=== PATIENT | male | born 1990 | race Caucasian/White ===

== ENCOUNTER 2017-03-17 15:43 | Inpatient (IN) | payer OTHER ==
[~2017-03-17] VITALS: Ht 160 cm; Wt 90.0 kg
[2017-03-17 15:47] VITALS: BP 140/75; PULSE 137; RESP 20; TEMP 99.2; O2SAT 98
[2017-03-17] MEDS ORDERED: METO25TA3 PO (16:13)
[2017-03-17] MEDS ORDERED: BENZ100 PO (16:13)
[2017-03-17] MEDS ORDERED: LORazepam 2 MG/ML VIAL IV PUSH ONE ×3 (16:45→17:45)
[2017-03-17] MEDS ORDERED: SODIUM CHLOR 0.9% 1000 ML INJ 1,000 ML IV ONE ×2 (16:45→19:00)
[2017-03-17 17:09] VITALS: BP 133/65; PULSE 112; RESP 18; O2SAT 98
[2017-03-17 17:29] LABS: AUTOMATED NEUTROPHIL # 9.5 TH/MM3 (1.8-7.7); BASOPHIL # 0.1 TH/MM3 (0-0.2); BASOPHIL % 0.4 % (0.0-2.0); EOSINOPHIL % 0.2 % (0.0-4.0); HEMATOCRIT 46.1 % (39.0-51.0); HEMO FLAGS DIFF FINAL; LYMPH % 10.6 % (9.0-44.0); LYMPHOCYTE # 1.4 TH/MM3 (1.0-4.8); MEAN CELL VOLUME 95.9 FL (80.0-100.0); MEAN CORPUSCULAR HEMOGLOBIN 32.5 PG (27.0-34.0); MEAN CORPUSCULAR HGB CONC 33.8 % (32.0-36.0); MONO % 14.3 % (0.0-8.0); NEUT % 74.5 % (16.0-70.0); PLATELET COUNT 212 TH/MM3 (150-450); RED BLOOD COUNT 4.81 MIL/MM3 (4.50-5.90); WHITE BLOOD COUNT 12.8 TH/MM3 (4.0-11.0)
[2017-03-17] MEDS ORDERED: HALOPERIDOL LACTATE 5 MG/ML AMP IM ONE (17:45)
--- NOTE | 2017-03-17 18:07 | PD ---
HPI Chief Complaint: Psychiatric Symptoms Time Seen by Provider: 16:24 Travel History International Travel<30 days: No Contact w/Intl Traveler<30days: No Traveled to known affect area: No History of Present Illness HPI Patient is a 26-year-old male who comes in with hallucinations and tremors. He has been drinking heavily for the past 2-3 months, but decided 5 days ago to quit. He says that he knows he is hallucinating. He also is very shaky. He complains of muscle cramps. He denies any chest pain or shortness of breath. Per his friend, he has been saying things like people are nice house trying to harm him. He does report a history of schizophrenia, and says that for 3 days he took risperidone, but was not given any more, and did not have insurance. PFSH Past Medical History Asthma: Yes Anxiety: Yes Depression: Yes Hypertension: Yes Insomnia: Yes Schizophrenia: Yes Tetanus Vaccination: Unknown Social History Alcohol Use: Yes Tobacco Use: Yes Substance Use: No Allergies-Medications (Allergen,Severity, Reaction): Coded Allergies: No Known Allergies (Unverified , 03/17/17) Reported Meds & Prescriptions Reported Meds & Active Scripts Active Reported Lisinopril-Hctz 20-25 Mg Tab 1 Tab PO DAILY Risperdal (Risperidone) 2 Mg Tab 2 Mg PO Q12HR Tessalon Perles (Benzonatate) 100 Mg Cap 200 Mg PO TID PRN Metoprolol Tartrate 25 Mg Tab 25 Mg PO TID Review of Systems Except as stated in HPI: all other systems reviewed are Neg General / Constitutional: No: Fever, Chills HENT: Positive: Lightheadedness, No: Headaches Cardiovascular: Positive: Tachycardia, Diaphoresis, No: Chest Pain or Discomfort, Syncope Respiratory: No: Shortness of Breath Gastrointestinal: No: Nausea, Vomiting Skin: No Rash, No Change in Pigmentation Neurologic: Positive: Tremor Physical Exam Narrative GENERAL: Awake and alert, in no acute distress. SKIN: Focused skin assessment warm/dry. HEAD: Atraumatic. Normocephalic. EYES: Pupils equal and round. No scleral icterus. Extraocular movements intact. ENT: Mucous membranes pink and moist. Tongue fasciculations. NECK: Trachea midline. No JVD. CARDIOVASCULAR: Regular rate and rhythm. No murmur appreciated. RESPIRATORY: No accessory muscle use. Clear to auscultation. Breath sounds equal bilaterally. GASTROINTESTINAL: Abdomen soft, non-tender, nondistended. MUSCULOSKELETAL: No obvious deformities. No clubbing. No cyanosis. No edema. NEUROLOGICAL: Awake and alert. No obvious cranial nerve deficits. Motor grossly within normal limits. Normal speech. Fine tremor to both hands. Data Data Last Documented VS Vital Signs Date Time Temp Pulse Resp B/P Pulse Ox O2 Delivery O2 Flow Rate FiO2 03/17/17 18:31 116 20 117/56 98 Room Air 03/17/17 15:47 99.2 Orders Iv Access Insert/Monitor (03/17/17 16:42) Complete Blood Count With Diff (03/17/17 16:42) Comprehensive Metabolic Panel (03/17/17 16:42) Alcohol (Ethanol) (03/17/17 16:42) Ecg Monitoring (03/17/17 16:42) Sodium Chlor 0.9% 1000 Ml Inj (Ns 1000 M (03/17/17 16:45) Lorazepam Inj (Ativan Inj) (03/17/17 16:45) Electrocardiogram (03/17/17 ) Lorazepam Inj (Ativan Inj) (03/17/17 17:30) Creatine Kinase (Cpk) (03/17/17 16:42) Haloperidol Inj (Haldol Inj) (03/17/17 17:45) Lorazepam Inj (Ativan Inj) (03/17/17 17:45) Restraints Violent (03/17/17 18:33) CKMB (03/17/17 16:50) CKMB% (03/17/17 16:50) Admit Order (Ed Use Only) (03/17/17 ) Consult Psychiatry (03/17/17 ) Labs Laboratory Tests Test 03/17/17 16:50 White Blood Count 12.8 TH/MM3 Red Blood Count 4.81 MIL/MM3 Hemoglobin 15.6 GM/DL Hematocrit 46.1 % Mean Corpuscular Volume 95.9 FL Mean Corpuscular Hemoglobin 32.5 PG Mean Corpuscular Hemoglobin 33.8 % Concent Red Cell Distribution Width 14.0 % Platelet Count 212 TH/MM3 Mean Platelet Volume 8.8 FL Neutrophils (%) (Auto) 74.5 % Lymphocytes (%) (Auto) 10.6 % Monocytes (%) (Auto) 14.3 % Eosinophils (%) (Auto) 0.2 % Basophils (%) (Auto) 0.4 % Neutrophils # (Auto) 9.5 TH/MM3 Lymphocytes # (Auto) 1.4 TH/MM3 Monocytes # (Auto) 1.8 TH/MM3 Eosinophils # (Auto) 0.0 TH/MM3 Basophils # (Auto) 0.1 TH/MM3 CBC Comment DIFF FINAL Differential Comment Sodium Level 134 MEQ/L Potassium Level 3.9 MEQ/L Chloride Level 96 MEQ/L Carbon Dioxide Level 22.3 MEQ/L Anion Gap 16 MEQ/L Blood Urea Nitrogen 16 MG/DL Creatinine 2.19 MG/DL Estimat Glomerular Filtration 36 ML/MIN Rate Random Glucose 72 MG/DL Calcium Level 10.8 MG/DL Total Bilirubin 1.1 MG/DL Aspartate Amino Transf 262 U/L (AST/SGOT) Alanine Aminotransferase 109 U/L (ALT/SGPT) Alkaline Phosphatase 94 U/L Total Creatine Kinase 8196 U/L Total Protein 8.6 GM/DL Albumin 4.5 GM/DL Ethyl Alcohol Level LESS THAN 3 MG/DL [facility] Medical Decision Making Medical Screen Exam Complete: Yes Emergency Medical Condition: Yes Interpretation(s) ECG shows sinus tachycardia, no ST elevation or depression Differential Diagnosis Alcohol withdrawal versus delirium tremens versus psychosis versus electrolytes abnormality versus dehydration Narrative Course Patient is a 26-year-old male who comes in with hallucinations and tremors. Exam shows a tremor of both hands as well as tongue fasciculations. Patient is tachycardic. IV established, labs sent. Patient given IV fluids as well as Ativan. Patient became very agitated, he required more Ativan as well as Haldol. It is unclear if the hallucinations are due to to alcohol withdrawal or his psychiatric diagnosis or a combination of both. He will be admitted for alcohol withdrawal, but will require a psychiatry consult. Show an elevated total CK. Given 2 L of fluids. Creatinine is also elevated. Patient has rhabdomyolysis Diagnosis Primary Impression: Alcohol withdrawal Qualified Code: F10.231 - Alcohol withdrawal, with delirium Additional Impressions: Psychosis Qualified Code: F29 - Psychosis, unspecified psychosis type Rhabdomyolysis Qualified Code: M62.82 - Non-traumatic rhabdomyolysis Admitting Information Admitting Physician Requests: Admit Condition: Stable Maxine Fontanez MD Mar 17, 2017 18:06
[2017-03-17 18:14] LABS: ALT (GPT) 109 U/L (12-78); ANION GAP 16 MEQ/L (5-15); AST (GOT) 262 U/L (15-37); BICARBONATE 22.3 MEQ/L (21.0-32.0); BLOOD UREA NITROGEN 16 MG/DL (7-18); CHLORIDE 96 MEQ/L (98-107); GLOMERULAR FILTRATION RATE 36 ML/MIN (>89); POTASSIUM 3.9 MEQ/L (3.5-5.1); SODIUM (NA) 134 MEQ/L (136-145)
[2017-03-17 18:31] VITALS: BP 117/56; PULSE 116; RESP 20; O2SAT 98
[2017-03-17 18:39] LABS: ALKALINE PHOSPHATASE 94 U/L (45-117); CREATINE KINASE 8196 U/L (39-308); TOTAL BILIRUBIN ADULT 1.1 MG/DL (0.2-1.0)
[2017-03-17] MEDS ORDERED: RISP2TAB37 PO (18:42)
[2017-03-17] MEDS ORDERED: LISI20TA3 PO (18:42)
[2017-03-17] MEDS ORDERED: SODIUM CHLOR 0.9% 1000 ML INJ 1,000 ML IV SCH (18:54)
--- NOTE | 2017-03-17 18:58 | HHI.HP ---
[facility] Primary Care Physician Admission Diagnosis Alcohol withdrawal Diagnoses: (1) Alcohol withdrawal Diagnosis: Principal (2) Psychosis Diagnosis: Principal (3) Renal insufficiency Diagnosis: Principal (4) Rhabdomyolysis Diagnosis: Principal (5) Elevated LFTs Diagnosis: Principal (6) Tobacco abuse Diagnosis: Principal Travel History International Travel<30 Days: No Contact w/Intl Traveler <30 Da: No Traveled to Known Affected Are: No History of Present Illness This is a 26-year-old male with a PMH of Anxiety, Depression, Schizophrenia, Alcohol Abuse and Tobacco Abuse was brought to the ER by EMS after neighbors noted patient to have visual hallucinations. Per pt, normally drinks heavily, however last drink approx 5 days ago. Now w/ visual hallucinations and tremors. Off Risperidone due to financial reasons. On arrival, BP 140/75, HR 137, O2 sat 98% on RA, Temp 99.2. W WBC 12.8. Creatinine 2.19, no previous labs for comparison. Calcium 10.8. LFTs elevated. CPK 8196. Alcohol less than 3. Review of Systems Except as stated in HPI: all other systems reviewed are Neg ROS: 14 point review of systems otherwise negative. Past Family Social History Past Medical History PMH: Anxiety, Depression, Schizophrenia, Alcohol Abuse and Tobacco Abuse Past Surgical History PAST SURGICAL HISTORY: Foot Surgery Allergies: Coded Allergies: No Known Allergies (Unverified , 03/17/17) Family History PAST FAMILY HISTORY: Reviewed. No h/o DM or CAD Social History PAST SOCIAL HISTORY: Positive for alcohol abuse. + Tobacco. Negative for drugs. Physical Exam Vital Signs Vital Signs Date Time Temp Pulse Resp B/P Pulse Ox O2 Delivery O2 Flow Rate FiO2 03/17/17 18:31 116 20 117/56 98 Room Air 03/17/17 17:09 112 18 133/65 98 Room Air 03/17/17 16:01 21 03/17/17 15:47 99.2 137 20 140/75 98 Physical Exam PE: GENERAL: Young male in no acute distress, mildly tremulous HEENT: PERRLA, EOMI. No scleral icterus or conjunctival pallor. No lid lag or facial droop. CARDIOVASCULAR: Regular rate and rhythm. No obvious murmurs to auscultation. No chest tenderness to palpation. RESPIRATORY: No obvious rhonchi or wheezing. Clear to auscultation. Breath sounds equal bilaterally. GASTROINTESTINAL: Abdomen soft, non-tender, nondistended. BS normal. MUSCULOSKELETAL: Extremities without clubbing, cyanosis, or edema. No obvious deformities. NEUROLOGICAL: Awake, alert and oriented x4. No focal neurologic deficits. Moving both upper and lower extremities spontaneously. Laboratory Laboratory Tests Test 03/17/17 16:50 White Blood Count 12.8 Red Blood Count 4.81 Hemoglobin 15.6 Hematocrit 46.1 Mean Corpuscular Volume 95.9 Mean Corpuscular Hemoglobin 32.5 Mean Corpuscular Hemoglobin 33.8 Concent Red Cell Distribution Width 14.0 Platelet Count 212 Mean Platelet Volume 8.8 Neutrophils (%) (Auto) 74.5 Lymphocytes (%) (Auto) 10.6 Monocytes (%) (Auto) 14.3 Eosinophils (%) (Auto) 0.2 Basophils (%) (Auto) 0.4 Neutrophils # (Auto) 9.5 Lymphocytes # (Auto) 1.4 Monocytes # (Auto) 1.8 Eosinophils # (Auto) 0.0 Basophils # (Auto) 0.1 CBC Comment DIFF FINAL Differential Comment Sodium Level 134 Potassium Level 3.9 Chloride Level 96 Carbon Dioxide Level 22.3 Anion Gap 16 Blood Urea Nitrogen 16 Creatinine 2.19 Estimat Glomerular Filtration 36 Rate Random Glucose 72 Calcium Level 10.8 Total Bilirubin 1.1 Aspartate Amino Transf 262 (AST/SGOT) Alanine Aminotransferase 109 (ALT/SGPT) Alkaline Phosphatase 94 Total Creatine Kinase 8196 Total Protein 8.6 Albumin 4.5 Ethyl Alcohol Level LESS THAN 3 Result Diagram: 03/17/17 1650 03/17/17 1650 Assessment and Plan Problem List: (1) Alcohol withdrawal ICD Code: F10.239 Status: Acute (2) Psychosis ICD Code: F29 Status: Acute (3) Rhabdomyolysis ICD Code: M62.82 Status: Acute (4) Renal insufficiency ICD Code: N28.9 Status: Acute (5) Elevated LFTs ICD Code: R79.89 Status: Acute (6) Tobacco abuse ICD Code: Z72.0 Status: Acute Assessment and Plan A/P: 1. Alcohol Withdrawal: h/o Alcohol Abuse w/ Acute Alcohol Withdrawal, last drink approx 5 days ago. CIWA, Seizure Precautions, MVT/Thiamine/Folate. 2. Psychosis: H/o Schizophrenia, off Risperidone, +visual hallucinations, likely secondary to underlying Schizophrenia and compounded by acute alcohol withdrawal. Treatment as above, resume Risperidone. Consult Psych for further evaluation. 3. Rhabdomyolysis: CPK 8196, denies drug use, likely secondary to significant dehydration. Check U/a, Urine Drug Screen, IVF for hydration, repeat CPK for trend. 4. Renal Insufficiency: Creatinine 2.19, no previous labs for comparison, likely acute. IVF for hydration, repeat labs in am. 5. Elevated LFTs: AST 262, ALT 109, ALP normal, Total Bili 1.1, likely due to alcohol abuse, repeat labs in am. 6. Tobacco Abuse: Pt counselled. Ativan/NicoDerm prn if needed. 7. DVT Prophylaxis: SCD/Teds. 8. Social work for d/c planning as needed. 9. Case discussed w/ ER physician at length. Physician Certification 2 Midnight Certification Type: Admission for Inpatient Services Order for Inpatient Services The services are ordered in accordance with Medicare regulations or non- Medicare payer requirements, as applicable. In the case of services not specified as inpatient-only, they are appropriately provided as inpatient services in accordance with the 2-midnight benchmark. Estimated LOS (days): 2 days is the estimated time the patient will need to remain in the hospital, assuming treatment plan goals are met and no additional complications. Post-Hospital Plan: Not yet determined Problem Qualifiers (1) Alcohol withdrawal: Qualified Code: F10.231 - Alcohol withdrawal, with delirium (2) Psychosis: Qualified Code: F29 - Psychosis, unspecified psychosis type (3) Rhabdomyolysis: Qualified Code: M62.82 - Non-traumatic rhabdomyolysis Pearl Méndez MD Mar 17, 2017 18:58
[2017-03-17] MEDS ORDERED: LACTULOSE SYRUP 20 GM/30 ML CUP PO PRN (19:00)
[2017-03-17] MEDS ORDERED: ONDANSETRON HCL 4 MG/2 ML VIAL IVP PRN (19:00)
[2017-03-17] MEDS ORDERED: SODIUM CHLORIDE 0.9% FLUSH 10 ML FLUSH IV FLUSH PRN (19:00)
[2017-03-17] MEDS ORDERED: ACETAMINOPHEN 325 MG TAB PO PRN (19:00)
[2017-03-17] MEDS ORDERED: LORazepam 2 MG/ML VIAL IV PUSH PRN ×3 (19:00)
[2017-03-17] MEDS ORDERED: LORazepam 2 MG TAB PO PRN (19:00)
[2017-03-17] MEDS ORDERED: LORazepam 1 MG TAB PO PRN (19:00)
[2017-03-17] MEDS ORDERED: MAGNESIUM HYDROXIDE SUSP 30 ML CUP PO PRN (19:00)
[2017-03-17] MEDS ORDERED: BISACODYL 10 MG SUPP RECTAL PRN (19:00)
[2017-03-17] MEDS ORDERED: SENNOSIDES 8.6 MG TAB PO PRN (19:00)
[2017-03-17] MEDS ORDERED: FLUMAZENIL 0.5 MG/5 ML VIAL IV PUSH PRN (19:00)
[2017-03-17] MEDS ORDERED: HALOPERIDOL LACTATE 5 MG/ML AMP IM PRN (19:00)
[2017-03-17 19:07] LABS: CKMB 54.7 NG/ML (0.5-3.6)
[2017-03-17 20:01] VITALS: BP 111/79; PULSE 110; O2SAT 100
[2017-03-17] MEDS: LORazepam 2 MG/ML VIAL IV PUSH PRN ×2 (21:02→23:10)
--- NOTE | 2017-03-17 21:33 | EKG ---
Date Performed: 03/17/2017 Time Performed: 17:05:18 PTAGE: 26 years EKG: SINUS TACHYCARDIA WITH SHORT CA INTERVAL NONSPECIFIC ST & T-WAVE ABNORMALITY ABNORMAL ECG NO PREVIOUS TRACING DOCTOR: Aleksandar Ricks Interpretating Date/Time 03/17/2017 21:31:30
[2017-03-17] MEDS: risperiDONE 1 MG TAB PO SCH (23:11)
[2017-03-17] MEDS: THIAMINE HCL 100 MG TAB PO SCH (23:11)
[2017-03-17] MEDS: DOCUSATE SODIUM 50 MG/SENNA 8.6 MG TAB PO SCH (23:11)
[2017-03-17] MEDS: SODIUM CHLORIDE 0.9% FLUSH 10 ML FLUSH IV FLUSH SCH (23:12)
[2017-03-18] VITALS: BP 128/73; PULSE 100; RESP 16; TEMP 97.3; O2SAT 91
[2017-03-18 02:16] LABS: CKMB 37.5 NG/ML (0.5-3.6)
[2017-03-18 04:31] VITALS: BP 137/80; PULSE 102; RESP 16; TEMP 98; O2SAT 98
[2017-03-18 07:17] LABS: AUTOMATED NEUTROPHIL # 3.5 TH/MM3 (1.8-7.7); BASOPHIL % 0.3 % (0.0-2.0); EOSINOPHIL # 0.1 TH/MM3 (0-0.4); HEMATOCRIT 39.3 % (39.0-51.0); HEMO FLAGS DIFF FINAL; LYMPH % 19.8 % (9.0-44.0); LYMPHOCYTE # 1.1 TH/MM3 (1.0-4.8); MEAN CORPUSCULAR HEMOGLOBIN 32.7 PG (27.0-34.0); MEAN CORPUSCULAR HGB CONC 33.7 % (32.0-36.0); MONO % 15.4 % (0.0-8.0); NEUT % 63.5 % (16.0-70.0); PLATELET COUNT 121 TH/MM3 (150-450); RED BLOOD COUNT 4.06 MIL/MM3 (4.50-5.90); RED CELL DISTRIBUTION WIDTH 13.9 % (11.6-17.2); WHITE BLOOD COUNT 5.5 TH/MM3 (4.0-11.0)
[2017-03-18 08:00] VITALS: BP 142/90; PULSE 101; RESP 18; TEMP 97.7; O2SAT 96
[2017-03-18 08:03] LABS: ALKALINE PHOSPHATASE 75 U/L (45-117); ALT (GPT) 83 U/L (12-78); ANION GAP 12 MEQ/L (5-15); AST (GOT) 184 U/L (15-37); BICARBONATE 21.6 MEQ/L (21.0-32.0); BLOOD UREA NITROGEN 14 MG/DL (7-18); CHLORIDE 107 MEQ/L (98-107); CREATINE KINASE 5723 U/L (39-308); GLOMERULAR FILTRATION RATE 100 ML/MIN (>89); POTASSIUM 3.8 MEQ/L (3.5-5.1); SODIUM (NA) 141 MEQ/L (136-145); TOTAL BILIRUBIN ADULT 1.1 MG/DL (0.2-1.0)
[2017-03-18 08:25] LABS: CKMB 30.9 NG/ML (0.5-3.6)
[2017-03-18] MEDS ORDERED: FOLIC ACID 1 MG TAB PO SCH (09:00)
[2017-03-18] MEDS ORDERED: MULTIVITAMINS/MINERALS THERAPEUTIC TAB PO SCH (09:00)
[2017-03-18] MEDS: DOCUSATE SODIUM 50 MG/SENNA 8.6 MG TAB PO SCH (09:20)
[2017-03-18] MEDS: risperiDONE 1 MG TAB PO SCH (09:21)
[2017-03-18] MEDS: THIAMINE HCL 100 MG TAB PO SCH (09:26)
[2017-03-18] MEDS: SODIUM CHLORIDE 0.9% FLUSH 10 ML FLUSH IV FLUSH SCH (09:27)
--- NOTE | 2017-03-18 09:42 | HHI.PR ---
Subjective Remarks Patient seen and examined this morning. Vitals overall stable with intermittent tachycardia. Per nurse no overnight events but has been tremulous. He is alert and orientated. Denies CP or SOB. States he is in the hospital for his schizophrenia, Objective Vital Signs Date Time Temp Pulse Resp B/P Pulse Ox O2 Delivery O2 Flow Rate FiO2 03/18/17 08:00 97.7 101 18 142/90 96 03/18/17 04:31 98.0 102 16 137/80 98 03/18/17 00:00 97.3 100 16 128/73 91 03/17/17 20:01 110 111/79 100 Room Air 03/17/17 18:31 116 20 117/56 98 Room Air 03/17/17 17:09 112 18 133/65 98 Room Air 03/17/17 16:01 21 03/17/17 15:47 99.2 137 20 140/75 98 I/O 03/17/17 03/17/17 03/17/17 03/18/17 03/18/17 03/18/17 06:59 14:59 22:59 06:59 14:59 22:59 Intake Total 947 ml 720 ml Output Total 350 ml 0 ml Balance 597 ml 720 ml Intake Oral 250 ml 720 ml IV Total 697 ml Output Urine Total 350 ml 0 ml Result Diagram: 03/18/17 0510 03/18/17 0540 Objective Remarks GENERAL: resting, well appearing SKIN: Warm and dry. HEAD: Normocephalic. EYES: No scleral icterus. No injection or drainage. NECK: Supple, trachea midline. No JVD or lymphadenopathy. CARDIOVASCULAR: tachycardic rate and rhythm without murmurs, gallops, or rubs. RESPIRATORY: Breath sounds equal bilaterally. No accessory muscle use. GASTROINTESTINAL: Abdomen soft, non-tender, nondistended. MUSCULOSKELETAL: No cyanosis, or edema. BACK: Nontender without obvious deformity. A/P Problem List: (1) Renal insufficiency ICD Code: N28.9 (2) Rhabdomyolysis ICD Code: M62.82 (3) Tobacco abuse ICD Code: Z72.0 (4) Alcohol withdrawal ICD Code: F10.239 Assessment and Plan 26-year-old male with a history of anxiety, depression, schizophrenia, alcohol abuse, and tobacco abuse admitted to the hospital for visual hallucinations. Alcohol Withdrawal: h/o Alcohol Abuse w/ Acute Alcohol Withdrawal, last drink approx 6 days ago. CIWA, Seizure Precautions, MVT/Thiamine/Folate. Psychosis: H/o Schizophrenia, off Risperidone, +visual hallucinations, likely secondary to underlying Schizophrenia and compounded by acute alcohol withdrawal. Resume Risperidone. Consult Psych for further evaluation. Rhabdomyolysis: CPK on admission 8196, now down trending UDS ordered Aggressive IVF JAE: Creatinine 2.19 on admission, no resolved, no previous labs for comparison likely secondary to above avoid nephrotoxic agents, aggressive IVF, follow Elevated LFTs: AST 262, ALT 109, ALP normal, Total Bili 1.1 likely due to alcohol abuse Tobacco Abuse: Pt counselled. Ativan/NicoDerm prn if needed. 7. DVT Prophylaxis: SCD/Teds, encourage ambulation Discharge Planning D/C pending stabilization of mental status. Psych requested patient be transferred to med/psych. Problem Qualifiers (1) Rhabdomyolysis: Qualified Code: M62.82 - Non-traumatic rhabdomyolysis (2) Alcohol withdrawal: Qualified Code: F10.231 - Alcohol withdrawal, with delirium Letty Morales MD Mar 18, 2017 09:41
--- NOTE | 2017-03-18 12:09 | PD.PSY.CON ---
Provisional Diagnosis Admission Date Mar 17, 2017 at 18:51 [place] I. Paranoid schizophrenia, alcohol use disorder [place] II. Deferred [place] III. Hypertension [place] IV. Noncompliant with psychotropics, unemployed [place] V. 35 History of Present Illness Service Psychiatry Consult Requested By Primary Care Physician No Primary Care Physician HPI The patient is a 26-year-old man, domiciled alone in [place], unemployed, single, with secondary history of schizophrenia, depression and anxiety, alcohol use disorder, 1 previous psychiatric hospitalization, no previous suicidal attempts, no active outpatient care, he has been in Risperdal in the past, with medical history hypertension and asthma, who was brought to the ER by EMS after neighbors noted patient to have visual hallucinations and was acting very bizarre. Per pt, normally drinks heavily, however last drink approx 5 days ago. BAL is negative. Initially in the ER he had visual hallucinations and tremors. On arrival, BP 140/75, HR 137, O2 sat 98% on RA, Temp 99.2. W WBC 12.8. Creatinine 2.19, no previous labs for comparison. Calcium 10.8. LFTs elevated. CPK 8196. As per nurses patient has been agitated in the medical floor, as night had to be restraining in 4 points and medicated with Haldol and Ativan. Today on psychiatric evaluation patient is calm, cooperative and pleasant. Patient is planes that he was diagnosed with schizophrenia about 1 years ago. Comes from a family with several schizophrenic members. He said that his father was schizophrenic his grandfather was schizophrenic. He has been living in [place] for about year, along in [place]. He has been working on and off. He was hospitalized once in [facility] and he was prescribed Risperdal, but for financial reason he has not been able to fill the prescriptions. He says that yesterday his good friends came to his house and told him that he has been acting very bizarre and not being himself. They thought that he was drunk, but the to is that he hasn't been drinking alcohol for the last 4 days. Patient reports having visual and auditory hallucinations. He says that he has been hearing voices telling him "we will kill you"and he has been seeing people around his house. Patient also says that he has been paranoid "feeling that there is people around him wanting to hurt him". However, patient denies suicidal and decided ideation. Patient is oriented 3. At this moment he is logical, coherent and relevant. No tangential or disorganized thought, gross delusions, ideas of reference, loosening of associations observed or reported. Patient reports daily use of alcohol, 4-6 beers every day, he reports history of withdrawal, no seizures, he has been in detox/rehabilitation 2 times in the past. He denies the use of illicit drugs.Collateral from Yanelis Moya, Mother, , she is a nurse. She says he has been drinking a lot of alcohol, no taking any responsibilities, no paying his bills. they have not been connected in the last months due o his alcoholism and life style. He has lost several jobs in the last months. He was Dx with paranoid schizophrenia in [place] about a year ago, but she does not have a lot of information about it. she knows he was the Risperdal, but stopped taking it due to financial problems. She confirms that his father and grandfather are both paranoid schizophrenic. Review of Systems Constitutional: DENIES: Diaphoretic episodes, Fatigue, Fever, Weight gain, Weight loss, Chills, Dizziness, Change in appetite, Night Sweats Endocrine: DENIES: Heat/cold intolerance, Polydipsia, Polyuria, Polyphagia Eyes: DENIES: Blurred vision, Diplopia, Eye inflammation, Eye pain, Vision loss , Photosensitivity, Double Vision Ears, nose, mouth, throat: DENIES: Tinnitus, Hearing loss, Vertigo, Nasal discharge, Oral lesions, Throat pain, Hoarseness, Ear Pain, Running Nose, Epistaxis, Sinus Pain, Toothache, Odynophagia Respiratory: DENIES: Apneas, Cough, Snoring, Wheezing, Hemoptysis, Sputum production, Shortness of breath Cardiovascular: DENIES: Chest pain, Palpitations, Syncope, Dyspnea on Exertion , PND, Lower Extremity Edema, Orthopnea, Claudication Gastrointestinal: DENIES: Abdominal pain, Black stools, Bloody stools, Constipation, Diarrhea, Nausea, Vomiting, Difficulty Swallowing, Anorexia Genitourinary: DENIES: Sexual dysfunction, Urinary frequency, Urinary incontinence, Urgency, Hematuria, Dysuria, Nocturia, Penile Discharge, Testicular Pain, Testicular Swelling Integumentary: DENIES: Abnormal pigmentation, Nail changes, Pruritus, Rash Hematologic/lymphatic: DENIES: Bruising, Lymphadenopathy Immunologic/allergic: DENIES: Eczema, Urticaria Neurologic: DENIES: Abnormal gait, Headache, Localized weakness, Paresthesias, Seizures, Speech Problems, Tremor, Poor Balance Psychiatric: COMPLAINS OF: Hallucinations, Delusions, DENIES: Anxiety, Confusion, Mood changes, Depression, Agitation, Suicidal Ideation, Homicidal Ideation Past Family Social History Coded Allergies: No Known Allergies (Unverified , 03/17/17) Reported Medications Lisinopril-Hctz 20-25 Mg Tab1 Tab PO DAILY #30 TAB Ref 0 03/17/17 Risperidone (Risperdal)2 Mg Tab2 Mg PO Q12HR #60 TAB Ref 0 03/17/17 Benzonatate (Tessalon Perles)100 Mg [id number] Mg PO TID PRN (COUGH) Ref 0 03/17/17 Metoprolol Tartrate 25 Mg Tab25 Mg PO TID #60 TAB Ref 0 03/17/17 Family History His father and grandfather are schizophrenic Social History Patient was born in [place], he was raised in [place], he lives alone in [place], at this moment is unemployed, single, his highest level of education is an associate degree. Patient's Strengths (min. 2) verbal communication Physical Exam Vital Signs Vital Signs Date Time Temp Pulse Resp B/P Pulse Ox O2 Delivery O2 Flow Rate FiO2 03/18/17 08:00 97.7 101 18 142/90 96 03/17/17 20:01 Room Air Lab Results Laboratory Tests Test 03/17/17 16:50 White Blood Count 12.8 Red Blood Count 4.81 Hemoglobin 15.6 Hematocrit 46.1 Mean Corpuscular Volume 95.9 Mean Corpuscular Hemoglobin 32.5 Mean Corpuscular Hemoglobin 33.8 Concent Red Cell Distribution Width 14.0 Platelet Count 212 Mean Platelet Volume 8.8 Neutrophils (%) (Auto) 74.5 Lymphocytes (%) (Auto) 10.6 Monocytes (%) (Auto) 14.3 Eosinophils (%) (Auto) 0.2 Basophils (%) (Auto) 0.4 Neutrophils # (Auto) 9.5 Lymphocytes # (Auto) 1.4 Monocytes # (Auto) 1.8 Eosinophils # (Auto) 0.0 Basophils # (Auto) 0.1 CBC Comment DIFF FINAL Differential Comment Sodium Level 134 Potassium Level 3.9 Chloride Level 96 Carbon Dioxide Level 22.3 Anion Gap 16 Blood Urea Nitrogen 16 Creatinine 2.19 Estimat Glomerular Filtration 36 Rate Random Glucose 72 Calcium Level 10.8 Total Bilirubin 1.1 Aspartate Amino Transf 262 (AST/SGOT) Alanine Aminotransferase 109 (ALT/SGPT) Alkaline Phosphatase 94 Total Creatine Kinase 8196 Total Protein 8.6 Albumin 4.5 Ethyl Alcohol Level LESS THAN 3 Result Diagram: 03/17/17 1650 03/17/17 1650 Mental Status Examination Appearance young man, age appearing, poor hygiene, he is calm and cooperative Speech: Unremarkable Orientation: x3 Memory: Unremarkable Thought Process: Logical, Goal Directed, Linear Thought Content: Paranoid Language Good grammar structure, complete sentences, adequate words Fund of Knowledge Adequate for level of education Hallucination Type: Auditory, Visual Attention and Concentration: Good Attention Remarks No attention deficit Suicidal Ideation: No Previous Suicide Attempts: No Homicidal Ideation: No Previous Homicide Attempts: No Judgment: Poor Affect: Euthymic Mood: Euthymic Motor Activity: Normal gait Assessment & Plan Problem List: (1) Paranoid schizophrenia Assessment & Plan: On psychiatric evaluation today the patient presents increase in severity, intensity and frequency episodes of visual and auditory hallucinations. Patient reports auditory hallucinations of voices telling him "I will kill you", also visual hallucinations of people around his house. She has reports paranoia of thinking that there are people around his house looking him to hurt him. Patient has history of paranoid schizophrenia, he has not been on medication, in the past he was stable on Risperdal 2 mg twice a day prescribed in [facility]. Patient also have a strong family history of paranoid schizophrenia, his father and grandfather both are schizophrenic. On the hospital patient has been agitated, hostile, last night had to be restrained in 4 points and had to be medicated with Haldol and Ativan. Patient also has history of severe alcohol abuse. Unclear if current presentation is secondary to alcohol withdrawal or schizophrenia decompensation. We'll start Risperdal 1 mg twice a day. Continue CILA protocol. Will restart medication for hypertension metoprolol 25 mg 3 times a day lisinopril 30 mg. Will consult medicine to address underlying acute renal failure, increased CPK. Patient will will sign voluntary admission to the med psych unit. Extensive supportive psychotherapy, motivation and psychoeducation provided. ICD Code: F20.0 Assessment & Plan Estimated LOS: days Kailash Flowers MD Mar 18, 2017 12:08
[2017-03-18] MEDS ORDERED: NON-FORMULARY DRUG (Lisinopril-Hctz 1 TAB) PO SCH (12:15)
[2017-03-18] MEDS ORDERED: METOPROLOL TARTRATE 25 MG TAB PO SCH (13:00)
== END 2017-03-18 11:28 | DRG 897 ==
LOC: NEPE 15:43 → NEDA 18:51 → N07B 21:53
PROVIDERS: ADMIT Family Medicine; ATTEND Family Medicine
DX: F10.239 Alcohol dependence with withdrawal, unspecified (principal); N17.9 Acute kidney failure, unspecified; M62.82 Rhabdomyolysis; F20.9 Schizophrenia, unspecified; J45.909 Unspecified asthma, uncomplicated; I10 Essential (primary) hypertension; F32.9 Major depressive disorder, single episode, unspecified; F41.9 Anxiety disorder, unspecified; G47.00 Insomnia, unspecified; F17.210 Nicotine dependence, cigarettes, uncomplicated
CPT/HCPCS: 80053; 80307; 82550; 82552; 85025; 93005; 96361; 96372; 96374; 96376; J1630; J2060; J7030

== ENCOUNTER 2017-03-18 12:02 | Inpatient (IN) | payer SELFPAY ==
[~2017-03-18 12:02] MED LIST: BENZ100 PO; LISI20TA3 PO; METO25TA3 PO; RISP2TAB37 PO
[2017-03-18] MEDS ORDERED: ALUMINUM/MAGNESIUM/SIMETH 30 ML CUP PO PRN (12:15)
[2017-03-18] MEDS ORDERED: NON-FORMULARY DRUG (Lisinopril-Hctz 1 TAB) PO SCH (12:15)
[2017-03-18] MEDS ORDERED: LORazepam 2 MG TAB PO PRN (12:15)
[2017-03-18] MEDS ORDERED: FLUMAZENIL 0.5 MG/5 ML VIAL IV PUSH PRN (12:15)
[2017-03-18] MEDS ORDERED: LORazepam 0.5 MG TAB PO PRN (12:15)
[2017-03-18] MEDS ORDERED: ACETAMINOPHEN 325 MG TAB PO PRN (12:15)
[2017-03-18] MEDS ORDERED: LORazepam 1 MG TAB PO PRN (12:15)
[2017-03-18] MEDS ORDERED: MAGNESIUM HYDROXIDE SUSP 30 ML CUP PO PRN (12:15)
[2017-03-18] MEDS ORDERED: LORazepam 2 MG/ML VIAL IM PRN ×2 (12:15)
[2017-03-18] MEDS ORDERED: LORazepam 2 MG/ML VIAL IV PUSH PRN ×4 (12:15)
[2017-03-18] MEDS: METOPROLOL TARTRATE 25 MG TAB PO SCH ×2 (13:00→17:49)
[2017-03-18] MEDS: 1/2 NS + KCL 20 MEQ INJ 1,000 ML IV SCH ×2 (13:00→22:25)
[2017-03-18] MEDS: risperiDONE 1 MG TAB PO SCH ×2 (13:15→21:00)
[2017-03-18] MEDS: NICOTINE 21 MG/24 HR PATCH T-DERMAL SCH (13:15)
[2017-03-18] MEDS: LISINOPRIL 20 MG TAB PO SCH (13:29)
[2017-03-18] MEDS: HYDROCHLOROTHIAZIDE 25 MG TAB PO SCH (13:30)
[2017-03-18 14:31] VITALS: BP 145/65; PULSE 104; RESP 20; TEMP 97.6
[2017-03-18 18:16] VITALS: BP 158/97; PULSE 106; RESP 16; TEMP 96.9; O2SAT 97
[2017-03-18 18:17] VITALS: BP 158/97; PULSE 106; RESP 16; TEMP 96.9; O2SAT 97
[2017-03-19] MEDS: LORazepam 1 MG TAB PO PRN ×2 (02:58→21:02)
[2017-03-19 05:54] VITALS: BP 138/81; PULSE 114; RESP 18; TEMP 99.1; O2SAT 97
[2017-03-19] MEDS: 1/2 NS + KCL 20 MEQ INJ 1,000 ML IV SCH (07:34)
[2017-03-19] MEDS: LISINOPRIL 20 MG TAB PO SCH (08:03)
[2017-03-19] MEDS: HYDROCHLOROTHIAZIDE 25 MG TAB PO SCH (08:03)
[2017-03-19] MEDS: REMOVE OLD NICOTINE PATCH T-DERMAL SCH (08:03)
[2017-03-19] MEDS: METOPROLOL TARTRATE 25 MG TAB PO SCH ×3 (08:03→17:19)
[2017-03-19] MEDS: risperiDONE 1 MG TAB PO SCH ×2 (08:03→21:02)
[2017-03-19] MEDS: NICOTINE 21 MG/24 HR PATCH T-DERMAL SCH (08:03)
[2017-03-19] MEDS ORDERED: INFLUENZA VIRUS VACCINE (QUADRIVALENT) 0.5 ML SYR IM ONE (09:00)
[2017-03-19 11:45] VITALS: BP 129/78; PULSE 114; RESP 18
--- NOTE | 2017-03-19 13:23 | HHI.HP ---
Provisional Diagnosis Admission Date Mar 18, 2017 at 12:02 [place] I. Schizophrenia, paranoid type, alcohol use disorder [place] II. Deferred [place] III. Alcohol withdrawal Certification of Person's Competence To Provide Express and Informed Consent I have personally examined Nnamdi Moya , a person being served at [facility] on, Mar 19, 2017 13:14. Express and informed consent means consent voluntarily given in writing, by a competent person, after sufficient explanation and disclosure of the subject matter involved to enable the person to make a knowing and willful decision without any element of force, fraud, deceit, duress, or other form of constraint or coercion. This person is 18 years of age or older, is not now known to be incompetent to consent to treatment with a guardian advocate, and does not have a health care surrogate or proxy currently making medical treatment decisions. I have found this person to be one of the following: [X] Competent to provide express and informed consent, as defined above, for voluntary admission to this facility and is competent to provide express and informed consent for treatment. He/she has the consistent capacity to make well reasoned, willful, and knowing decisions concerning his or her medical or mental health treatment. The person fully and consistently understands the purpose of the admission for examination/placement and is fully capable of personally exercising all rights assured [place] Incompetent to provide express and informed consent to voluntary admission, and this is incompetent to provide express and informed consent to treatment. The person must be transferred to involuntary status and a petition for a guardian advocate filed with the Circuit Court. [] Refusing to provide express and informed consent to voluntary admission but is competent to provide express and informed consent for treatment. The person must be discharged or transferred to involuntary status. Form shall be completed within 24 hours of a person's arrival at the receiving facility and filed in the clinical record of each person: 1. Admitted on a voluntary basis 2. Permitted to provide express and informed consent to his/her own treatment 3. Allowed to transfer from involuntary to voluntary status 4. Prior to permitting a person to consent to his or her own treatment after having been previously found incompetent to consent to treatment. History of Present Illness Capacity: Has Capacity HPI 03/18/2017 The patient is a 26-year-old man, domiciled alone in [place] , unemployed, single, with secondary history of schizophrenia, depression and anxiety, alcohol use disorder, 1 previous psychiatric hospitalization, no previous suicidal attempts, no active outpatient care, he has been in Risperdal in the past, with medical history hypertension and asthma, who was brought to the ER by EMS after neighbors noted patient to have visual hallucinations and was acting very bizarre. Per pt, normally drinks heavily, however last drink approx 5 days ago. BAL is negative. Initially in the ER he had visual hallucinations and tremors. On arrival, BP 140/75, HR 137, O2 sat 98% on RA, Temp 99.2. W WBC 12.8. Creatinine 2.19, no previous labs for comparison. Calcium 10.8. LFTs elevated. CPK 8196. As per nurses patient has been agitated in the medical floor, as night had to be restraining in 4 points and medicated with Haldol and Ativan. Today on psychiatric evaluation patient is calm, cooperative and pleasant. Patient is planes that he was diagnosed with schizophrenia about 1 years ago. Comes from a family with several schizophrenic members. He said that his father was schizophrenic his grandfather was schizophrenic. He has been living in [place] for about year, along in [place]. He has been working on and off. He was hospitalized once in [facility] and he was prescribed Risperdal, but for financial reason he has not been able to fill the prescriptions. He says that yesterday his good friends came to his house and told him that he has been acting very bizarre and not being himself. They thought that he was drunk, but the to is that he hasn't been drinking alcohol for the last 4 days. Patient reports having visual and auditory hallucinations. He says that he has been hearing voices telling him "we will kill you"and he has been seeing people around his house. Patient also says that he has been paranoid "feeling that there is people around him wanting to hurt him". However, patient denies suicidal and decided ideation. Patient is oriented 3. At this moment he is logical, coherent and relevant. No tangential or disorganized thought, gross delusions, ideas of reference, loosening of associations observed or reported. Patient reports daily use of alcohol, 4-6 beers every day, he reports history of withdrawal, no seizures, he has been in detox/rehabilitation 2 times in the past. He denies the use of illicit drugs.Collateral from Yanelis Moya, Mother, , she is a nurse. She says he has been drinking a lot of alcohol, no taking any responsibilities, no paying his bills. they have not been connected in the last months due o his alcoholism and life style. He has lost several jobs in the last months. He was Dx with paranoid schizophrenia in [place] about a year ago, but she does not have a lot of information about it. she knows he was the Risperdal, but stopped taking it due to financial problems. She confirms that his father and grandfather are both paranoid schizophrenic. 03/19/2017 patient was seen today for psychiatric reevaluation, patient is calm, cooperative, but very preoccupied about a court date tomorrow. Patient says that he doesn't want to miss his court date and he doesn't want to go to [facility]. Once patient was reassured that the socially responsible investment adviser would call court and let them know that he is hospitalized he felt much better. Patient reports visual hallucinations of seeing a man coming inside the bathroom, also reports auditory hallucinations of several voices talking about him, but no with him. The auditory hallucinations are not commanding type. He denies suicidal and homicidal ideation. He is oriented 3, no attention deficit, no fluctuation of consciousness. Patient has been compliant with his medications, no significant side effects so far. Review of Systems Constitutional: DENIES: Diaphoretic episodes, Fatigue, Fever, Weight gain, Weight loss, Chills, Dizziness, Change in appetite, Night Sweats Endocrine: DENIES: Heat/cold intolerance, Polydipsia, Polyuria, Polyphagia Eyes: DENIES: Blurred vision, Diplopia, Eye inflammation, Eye pain, Vision loss , Photosensitivity, Double Vision Ears, nose, mouth, throat: DENIES: Tinnitus, Hearing loss, Vertigo, Nasal discharge, Oral lesions, Throat pain, Hoarseness, Ear Pain, Running Nose, Epistaxis, Sinus Pain, Toothache, Odynophagia Respiratory: DENIES: Apneas, Cough, Snoring, Wheezing, Hemoptysis, Sputum production, Shortness of breath Cardiovascular: DENIES: Chest pain, Palpitations, Syncope, Dyspnea on Exertion , PND, Lower Extremity Edema, Orthopnea, Claudication Gastrointestinal: DENIES: Abdominal pain, Black stools, Bloody stools, Constipation, Diarrhea, Nausea, Vomiting, Difficulty Swallowing, Anorexia Musculoskeletal: DENIES: Joint pain, Muscle aches, Stiffness, Joint Swelling, Back pain, Neck pain Integumentary: DENIES: Abnormal pigmentation, Nail changes, Pruritus, Rash Hematologic/lymphatic: DENIES: Bruising, Lymphadenopathy Immunologic/allergic: DENIES: Eczema, Urticaria Neurologic: DENIES: Abnormal gait, Headache, Localized weakness, Paresthesias, Seizures, Speech Problems, Tremor, Poor Balance Psychiatric: COMPLAINS OF: Hallucinations, DENIES: Anxiety, Confusion, Mood changes, Depression, Agitation, Suicidal Ideation, Homicidal Ideation, Delusions Substance Abuse History Drugs/Alcohol past 12 months Patient reports almost daily use of alcohol, 4-6 beers, he denies the use of other illicit drugs Past Family Social History Coded Allergies: No Known Allergies (Unverified , 03/17/17) Reported Medications Lisinopril-Hctz 20-25 Mg Tab1 Tab PO DAILY #30 TAB Ref 0 03/17/17 Risperidone (Risperdal)2 Mg Tab2 Mg PO Q12HR #60 TAB Ref 0 03/17/17 Benzonatate (Tessalon Perles)100 Mg [id number] Mg PO TID PRN (COUGH) Ref 0 03/17/17 Metoprolol Tartrate 25 Mg Tab25 Mg PO TID #60 TAB Ref 0 03/17/17 Current Medications Medications (Trade) Dose Ordered Sig/Tom Route Start Time Stop Time Status Last Admin (Lopressor) 25 mg TID PO 03/18/17 13:00 03/19/17 11:45 (Ativan) 1 mg Q6H PRN PO 03/18/17 12:15 03/19/17 02:58 (Ativan Inj) 1 mg Q6H PRN IM 03/18/17 12:15 (Tylenol) 650 mg Q4H PRN PO 03/18/17 12:15 (Milk Of Magnesia Liq) 30 ml DAILY PRN PO 03/18/17 12:15 (Mag-Al Plus Susp Liq) 30 ml Q6H PRN PO 03/18/17 12:15 (Habitrol 21 Mg Patch.24 Hr) 1 patch DAILY T-DERMAL 03/18/17 13:15 03/19/17 08:03 (Romazicon Inj) 0.2 mg Q1M PRN IV PUSH 03/18/17 12:15 (Ativan) 1 mg Q4H PRN PO 03/18/17 12:15 (Ativan Inj) 1 mg Q4H PRN IV PUSH 03/18/17 12:15 (Ativan) 2 mg Q2H PRN PO 03/18/17 12:15 03/19/17 11:55 (Ativan Inj) 2 mg Q2H PRN IV PUSH 03/18/17 12:15 (Ativan Inj) 2 mg Q1H PRN IV PUSH 03/18/17 12:15 Lorazepam 2 mg 2 mg Q15M PRN IV PUSH 03/18/17 12:15 (1/2 NS + KCl 20 Meq Inj) 1,000 ml @ 100 mls/hr Q10H IV 03/18/17 13:00 03/19/17 07:34 (Prinivil) 20 mg DAILY PO 03/18/17 13:30 03/19/17 08:03 (Hydrodiuril) 25 mg DAILY PO 03/18/17 13:30 03/19/17 08:03 Miscellaneous Information 1 DAILY T-DERMAL 03/19/17 09:00 03/19/17 08:03 (risperDAL) 3 mg Q12HR PO 03/19/17 21:00 UNV Family History His father and grandfather are both schizophrenic Social History Patient was born in [place], he was raised in [place], he lives alone in [place], at this moment is unemployed, single, his highest level of education is an associate degree Patient's Strengths (min. 2) Verbal communication, good insight Physical Exam A physical exam no tremors, no EPS, no gait disturbance, no weakness, no rigidity, no stiffness no psychomotor retardation or agitation Vital Signs Vital Signs Date Time Temp Pulse Resp B/P Pulse Ox O2 Delivery O2 Flow Rate FiO2 03/19/17 11:45 114 18 129/78 03/19/17 05:54 99.1 97 I/O 03/18/17 03/18/17 03/19/17 08:00 16:00 00:00 Intake Total 540 ml 960 ml Balance 540 ml 960 ml Mental Status Examination Appearance young man, good hygiene, [facility], calm, cooperative Speech: Unremarkable Memory: Unremarkable Thought Process: Logical Thought Content: Paranoid Language Fluent and spontaneous Fund of Knowledge Adequate for his level of education Hallucination Type: Auditory, Visual Suicidal Ideation: No Previous Suicide Attempts: No Homicidal Ideation: No Previous Homicide Attempts: No Judgment: WNL Affect: Good Mood: Appropriate Motor Activity: Normal gait Assessment & Plan Problem List: (1) Paranoid schizophrenia Assessment & Plan: On psychiatric evaluation today the patient presents increase in severity, intensity and frequency episodes of visual and auditory hallucinations. Patient reports auditory hallucinations of voices "talking about me, but no with me", also visual hallucinations of people around his bed. hE has reports paranoia of thinking that there are people around his house looking him to hurt him. Patient has history of paranoid schizophrenia, he has not been on medication, in the past he was stable on Risperdal 2 mg twice a day prescribed in [facility]. Patient also have a strong family history of paranoid schizophrenia, his father and grandfather both are schizophrenic. Patient also has history of severe alcohol abuse. Unclear if current presentation is secondary to alcohol withdrawal or schizophrenia decompensation. Will increase Risperdal to 3 mg twice a day. Continue CIWA protocol. Will restart medication for hypertension metoprolol 25 mg 3 times a day lisinopril 30 mg. Will consult medicine to address underlying acute renal failure, increased CPK. Patient will will sign voluntary admission to the med psych unit. Extensive supportive psychotherapy, motivation and psychoeducation provided. nursing support worker intervention for psychosocial assessment, individual and group therapy, collateral information, to coordinate a safe discharge plan. ICD Code: F20.0 Assessment & Plan Estimated LOS: Kailash Goodman MD Mar 19, 2017 13:23
--- NOTE | 2017-03-19 14:03 | PD.CONS ---
[facility] team Reason for Consult Assist with medical management Primary Care Physician No Primary Care Physician Diagnoses: History of Present Illness Written by Sun White, acting as scribe for Dr. Elkins on 03/19/17 at 13: 43. Patient is a 26-year-old male with primary medical history of schizophrenia, anxiety, depression, alcohol abuse, alcohol withdrawals, and tobacco abuse who came into the hospital via EMS called by his neighbor. Patient states that he was having alcohol withdrawals and hallucinating, hearing voices and telling him to do some things. States that he normally drinks 1 bottle of bourbon daily and his last drink was more than 5 days prior to hospitalization. He starts hearing voices. He denies any visual hallucinations. Reports he have alcohol withdrawals previously but without any seizures. As per review of records, patient was off of his risperidone secondary to financial reasons. Reports he now has some shakes, tremors. Otherwise, denies pain and discomfort. Denies SOB/ dyspnea. Denies chest pain, palpitations, headaches, dizziness. Denies fevers, chills, n/v/d. Denies dysuria. Review of Systems Except as stated in HPI: all other systems reviewed are Neg Past Family Social History Allergies: Coded Allergies: No Known Allergies (Unverified , 03/17/17) Past Medical History HTN Schizophrenia EtOH withdrawal Anxiety Depression Past Surgical History Right ankle surgery Reported Medications Reported Meds & Active Scripts Active Reported Lisinopril-Hctz 20-25 Mg Tab 1 Tab PO DAILY Risperdal (Risperidone) 2 Mg Tab 2 Mg PO Q12HR Tessalon Perles (Benzonatate) 100 Mg Cap 200 Mg PO TID PRN Metoprolol Tartrate 25 Mg Tab 25 Mg PO TID Active Ordered Medications Current Medications Medications (Trade) Dose Ordered Sig/Tom Route Start Time Stop Time Status Last Admin (Lopressor) 25 mg TID PO 03/18/17 13:00 03/19/17 11:45 (Ativan) 1 mg Q6H PRN PO 03/18/17 12:15 03/19/17 02:58 (Ativan Inj) 1 mg Q6H PRN IM 03/18/17 12:15 (Tylenol) 650 mg Q4H PRN PO 03/18/17 12:15 (Milk Of Magnesia Liq) 30 ml DAILY PRN PO 03/18/17 12:15 (Mag-Al Plus Susp Liq) 30 ml Q6H PRN PO 03/18/17 12:15 (Habitrol 21 Mg Patch.24 Hr) 1 patch DAILY T-DERMAL 03/18/17 13:15 03/19/17 08:03 (Romazicon Inj) 0.2 mg Q1M PRN IV PUSH 03/18/17 12:15 (Ativan) 1 mg Q4H PRN PO 03/18/17 12:15 (Ativan Inj) 1 mg Q4H PRN IV PUSH 03/18/17 12:15 (Ativan) 2 mg Q2H PRN PO 03/18/17 12:15 03/19/17 11:55 (Ativan Inj) 2 mg Q2H PRN IV PUSH 03/18/17 12:15 (Ativan Inj) 2 mg Q1H PRN IV PUSH 03/18/17 12:15 Lorazepam 2 mg 2 mg Q15M PRN IV PUSH 03/18/17 12:15 (1/2 NS + KCl 20 Meq Inj) 1,000 ml @ 100 mls/hr Q10H IV 03/18/17 13:00 03/19/17 07:34 (Prinivil) 20 mg DAILY PO 03/18/17 13:30 03/19/17 08:03 (Hydrodiuril) 25 mg DAILY PO 03/18/17 13:30 03/19/17 08:03 Miscellaneous Information 1 DAILY T-DERMAL 03/19/17 09:00 03/19/17 08:03 (risperDAL) 3 mg Q12HR PO 03/19/17 21:00 Family History Family history of schizophrenia, father and grandfather Heart disease Cancer, unknown kind Social History Drinks one bourbon bottle per day Current a smoker about 1 pack per day Denies illicit drug use Physical Exam Vital Signs Vital Signs Date Time Temp Pulse Resp B/P Pulse Ox O2 Delivery O2 Flow Rate FiO2 03/19/17 11:45 114 18 129/78 03/19/17 05:54 99.1 114 18 138/81 97 03/18/17 18:17 96.9 106 16 158/97 97 03/18/17 18:16 96.9 106 16 158/97 97 03/18/17 14:31 97.6 104 20 145/65 Physical Exam GENERAL: This is a well-nourished, well-developed patient, in no apparent distress. SKIN: No rashes, ecchymoses or lesions. Cool and dry. HEAD: Atraumatic. Normocephalic. EYES: Pupils equal round and reactive. Extraocular motions intact. No scleral icterus. No injection or drainage. ENT: Nose without bleeding. Throat without erythema. Uvula midline. Airway patent. NECK: Trachea midline. Supple. CARDIOVASCULAR: Regular rate and rhythm without murmurs, gallops, or rubs. RESPIRATORY: Clear to auscultation. Breath sounds equal bilaterally. No wheezes , rales, or rhonchi. GASTROINTESTINAL: Abdomen soft, non-tender, nondistended. Bowel sounds active 4. MUSCULOSKELETAL: Extremities without clubbing, cyanosis, or edema. NEUROLOGICAL: Awake and alert. Oriented to person, place. Motor and sensory grossly within normal limits. Moves all extremities equally. Normal speech. Assessment and Plan Problem List: (1) Paranoid schizophrenia ICD Code: F20.0 Status: Acute (2) Elevated LFTs ICD Code: R79.89 Status: Acute (3) Alcohol withdrawal ICD Code: F10.239 Status: Acute (4) Tobacco abuse ICD Code: Z72.0 Status: Chronic (5) Rhabdomyolysis ICD Code: M62.82 Status: Acute (6) JAE (acute kidney injury) ICD Code: N17.9 Status: Acute Assessment and Plan Patient is a 26-year-old male with primary medical history of schizophrenia, anxiety, depression, alcohol abuse, alcohol withdrawals, and tobacco abuse who came into the hospital via EMS called by his neighbor. Patient states that he was having alcohol withdrawals and hallucinating, hearing voices and telling him to do some things. Schizophrenia, anxiety, depression, hallucination - Managed by psychiatry team Alcohol withdrawal - CIWA protocol - Seizure precautions - Add thiamine, folate - Counselled. Encouraged to be placed in rehabilitation. Declines rehabilitation states "I will try to avoid alcohol." Elevated liver enzymes - Possibly secondary to alcohol abuse - Trend LFTs Rhabdomyolysis - Encourage by mouth fluid intake - IV fluids when necessary if not drinking enough - Check CK levels HTN - Continue home medications lisinopril, hydrochlorothiazide, metoprolol - Monitor BP trend DVT prop ambulatory This note was transcribed by scribe [Sun White]. I, Dr. Daphne Elkins personally performed the history, physical exam, and medical decision making; and confirmed the accuracy of the information in the transcribed note. Authenticated by Dr. Daphne Elkins on 03/19/17 at 1350. Code Status Full code Discussed Condition With Patient, nursing Sun Guillermo Mar 19, 2017 14:03 Daphne Elkins MD Mar 19, 2017 15:53
[2017-03-19 14:11] LABS: ANION GAP 12 MEQ/L (5-15); BICARBONATE 21.9 MEQ/L (21.0-32.0); BLOOD UREA NITROGEN 7 MG/DL (7-18); CHLORIDE 102 MEQ/L (98-107); GLOMERULAR FILTRATION RATE 100 ML/MIN (>89); POTASSIUM 3.6 MEQ/L (3.5-5.1); SODIUM (NA) 136 MEQ/L (136-145)
[2017-03-19 14:13] LABS: HDL CHOLESTEROL 80.5 MG/DL (40.0-60.0); LDL CHOLESTEROL 110 MG/DL (0-99)
[2017-03-19 14:59] LABS: AST (GOT) 112 U/L (15-37)
[2017-03-19 15:01] LABS: ALKALINE PHOSPHATASE 82 U/L (45-117); TOTAL BILIRUBIN ADULT 0.6 MG/DL (0.2-1.0)
[2017-03-19 15:14] LABS: ALT (GPT) 84 U/L (12-78)
[2017-03-19 15:28] LABS: CREATINE KINASE 2484 U/L (39-308)
[2017-03-19 15:48] LABS: CKMB 4.8 NG/ML (0.5-3.6)
[2017-03-19 16:21] LABS: HEMOGLOBIN A1a 1.1 %; HEMOGLOBIN A1b 0.8 %; HEMOGLOBIN Ao 85.3 %; HEMOGLOBIN F 0.8 %; HEMOGLOBIN LA1C 2.2 %; HEMOGLOBIN P3 3.5 %
[2017-03-19 17:12] VITALS: BP 135/82; PULSE 105; RESP 18; TEMP 98.9; O2SAT 95
[2017-03-19 18:20] VITALS: BP 135/82; PULSE 105; RESP 18; TEMP 98.9; O2SAT 95
[2017-03-19 18:21] VITALS: BP 135/82; PULSE 105; RESP 18; TEMP 98.9; O2SAT 95
[2017-03-20] MEDS: LORazepam 1 MG TAB PO PRN (05:02)
[2017-03-20 05:19] VITALS: BP 147/75; PULSE 125; RESP 18; TEMP 98.5; O2SAT 95
[2017-03-20] MEDS: LISINOPRIL 20 MG TAB PO SCH (08:11)
[2017-03-20] MEDS: METOPROLOL TARTRATE 25 MG TAB PO SCH ×2 (08:11→12:29)
[2017-03-20] MEDS: HYDROCHLOROTHIAZIDE 25 MG TAB PO SCH (08:11)
[2017-03-20] MEDS: risperiDONE 1 MG TAB PO SCH (08:11)
[2017-03-20] MEDS: NICOTINE 21 MG/24 HR PATCH T-DERMAL SCH (08:11)
[2017-03-20] MEDS: REMOVE OLD NICOTINE PATCH T-DERMAL SCH (08:11)
[2017-03-20] MEDS ORDERED: THIAMINE HCL 100 MG TAB PO SCH (09:00)
[2017-03-20] MEDS ORDERED: FOLIC ACID 1 MG TAB PO SCH (09:00)
--- NOTE | 2017-03-20 11:13 | HHI.PR ---
Subjective Remarks Follow-up visit Alcohol abuse, alcohol withdrawal, rhabdomyolysis. Patient seen and examined today. Reports he is doing well. Reports he's been hydrating well. As per nursing, plan for discharge home today. Patient requesting to be discharged home today. Reports no primary care doctor. Patient has agreed to draw labs prior to discharge and will follow up with the recommendations. Denies any tremors, shakes, withdrawal symptoms. Denies pain and discomfort. Denies SOB/ dyspnea. Denies chest pain, palpitations, headaches, dizziness. Denies fevers, chills, n/v/d. Objective Vitals Vital Signs Date Time Temp Pulse Resp B/P Pulse Ox O2 Delivery O2 Flow Rate FiO2 03/20/17 05:19 98.5 125 18 147/75 95 03/19/17 18:21 98.9 105 18 135/82 95 03/19/17 18:20 98.9 105 18 135/82 95 03/19/17 17:12 98.9 105 18 135/82 95 03/19/17 11:45 114 18 129/78 I/O 03/19/17 03/19/17 03/19/17 03/20/17 03/20/17 03/20/17 07:00 15:00 23:00 07:00 15:00 23:00 Intake Total 240 ml 1200 ml 960 ml 480 ml 480 ml Balance 240 ml 1200 ml 960 ml 480 ml 480 ml Intake Oral 240 ml 1200 ml 960 ml 480 ml 480 ml # Voids 2 6 3 Result Diagram: 03/19/17 1200 Objective Remarks GENERAL: This is a well-nourished, well-developed patient, in no apparent distress. SKIN: Warm and dry. HEAD: Atraumatic. EYES: No scleral icterus. No injection or drainage. ENT: Nose without bleeding. Throat without erythema. Uvula midline. Airway patent. NECK: Trachea midline. Supple. CARDIOVASCULAR: Regular rate and rhythm without murmurs, gallops, or rubs. RESPIRATORY: Clear to auscultation. Breath sounds equal bilaterally. No wheezes , rales, or rhonchi. GASTROINTESTINAL: Abdomen soft, non-tender, nondistended. Bowel sounds active 4. MUSCULOSKELETAL: Extremities without clubbing, cyanosis, or edema. No tremors noted. NEUROLOGICAL: Awake and alert. Oriented to person, place. Motor and sensory grossly within normal limits. Moves all extremities equally. Normal speech. A/P Problem List: (1) Paranoid schizophrenia ICD Code: F20.0 Status: Acute (2) Elevated LFTs ICD Code: R79.89 Status: Acute (3) Alcohol withdrawal ICD Code: F10.239 Status: Acute (4) Tobacco abuse ICD Code: Z72.0 Status: Chronic (5) Rhabdomyolysis ICD Code: M62.82 Status: Acute (6) JAE (acute kidney injury) ICD Code: N17.9 Status: Acute Assessment and Plan Patient is a 26-year-old male with primary medical history of schizophrenia, anxiety, depression, alcohol abuse, alcohol withdrawals, and tobacco abuse who came into the hospital via EMS called by his neighbor. Patient states that he was having alcohol withdrawals and hallucinating, hearing voices and telling him to do some things. Schizophrenia, anxiety, depression, hallucination - Managed by psychiatry team Alcohol withdrawal - CIWA protocol - Seizure precautions - Add thiamine, folate - Counselled. Encouraged to be placed in rehabilitation. Declines rehabilitation states "I will try to avoid alcohol." Elevated liver enzymes - Possibly secondary to alcohol abuse - Trend LFTs Rhabdomyolysis - Encourage by mouth fluid intake - IV fluids when necessary if not drinking enough - Check CK levels, patient has agreed to check CK prior to discharge and will continue to hydrate. States that he doesn't want to stay overnight even if the CK remains the same. Recommended if the CK trends down patient may be discharged home safely follow-up with a PCP and recheck CK in one week. Recommend to continue fluid hydration. Patient agrees with plan. HTN - Continue home medications lisinopril, hydrochlorothiazide, metoprolol - Monitor BP trend - Controlled DVT prop ambulatory Sun Guillermo [facility] Mar 20, 2017 11:13
[2017-03-20] MEDS ORDERED: METO25TA3 PO (11:34)
[2017-03-20] MEDS ORDERED: LISI-515 PO (11:34)
[2017-03-20] MEDS ORDERED: RISP1 PO (11:34)
[2017-03-20] MEDS ORDERED: HYDR25TA5 PO (11:34)
[2017-03-20 13:45] LABS: CKMB 2.3 NG/ML (0.5-3.6)
--- NOTE | 2017-03-20 16:47 | HHI.DS ---
Psychiatry Discharge Summary Inpatient Psychiatric care?: Yes Advance Directive: Yes Mental Health AdvanceDirective: No Health Care Proxy: No Admission Admission Date Mar 18, 2017 at 12:02 Admission Diagnosis: (1) Alcohol withdrawal ICD Code: F10.239 (2) JAE (acute kidney injury) ICD Code: N17.9 (3) Paranoid schizophrenia ICD Code: F20.0 Brief History 03/18/2017 The patient is a 26-year-old man, domiciled alone in [place] , unemployed, single, with secondary history of schizophrenia, depression and anxiety, alcohol use disorder, 1 previous psychiatric hospitalization, no previous suicidal attempts, no active outpatient care, he has been in Risperdal in the past, with medical history hypertension and asthma, who was brought to the ER by EMS after neighbors noted patient to have visual hallucinations and was acting very bizarre. Per pt, normally drinks heavily, however last drink approx 5 days ago. BAL is negative. Initially in the ER he had visual hallucinations and tremors. On arrival, BP 140/75, HR 137, O2 sat 98% on RA, Temp 99.2. W WBC 12.8. Creatinine 2.19, no previous labs for comparison. Calcium 10.8. LFTs elevated. CPK 8196. As per nurses patient has been agitated in the medical floor, as night had to be restraining in 4 points and medicated with Haldol and Ativan. Today on psychiatric evaluation patient is calm, cooperative and pleasant. Patient is planes that he was diagnosed with schizophrenia about 1 years ago. Comes from a family with several schizophrenic members. He said that his father was schizophrenic his grandfather was schizophrenic. He has been living in [place] for about year, along in [place]. He has been working on and off. He was hospitalized once in [facility] and he was prescribed Risperdal, but for financial reason he has not been able to fill the prescriptions. He says that yesterday his good friends came to his house and told him that he has been acting very bizarre and not being himself. They thought that he was drunk, but the to is that he hasn't been drinking alcohol for the last 4 days. Patient reports having visual and auditory hallucinations. He says that he has been hearing voices telling him "we will kill you"and he has been seeing people around his house. Patient also says that he has been paranoid "feeling that there is people around him wanting to hurt him". However, patient denies suicidal and decided ideation. Patient is oriented 3. At this moment he is logical, coherent and relevant. No tangential or disorganized thought, gross delusions, ideas of reference, loosening of associations observed or reported. Patient reports daily use of alcohol, 4-6 beers every day, he reports history of withdrawal, no seizures, he has been in detox/rehabilitation 2 times in the past. He denies the use of illicit drugs.Collateral from Yanelis Moya, Mother, , she is a nurse. She says he has been drinking a lot of alcohol, no taking any responsibilities, no paying his bills. they have not been connected in the last months due o his alcoholism and life style. He has lost several jobs in the last months. He was Dx with paranoid schizophrenia in [place] about a year ago, but she does not have a lot of information about it. she knows he was the Risperdal, but stopped taking it due to financial problems. She confirms that his father and grandfather are both paranoid schizophrenic. 03/19/2017 patient was seen today for psychiatric reevaluation, patient is calm, cooperative, but very preoccupied about a court date tomorrow. Patient says that he doesn't want to miss his court date and he doesn't want to go to halfway. Once patient was reassured that the high school social science teacher would call court and let them know that he is hospitalized he felt much better. Patient reports visual hallucinations of seeing a man coming inside the bathroom, also reports auditory hallucinations of several voices talking about him, but no with him. The auditory hallucinations are not commanding type. He denies suicidal and homicidal ideation. He is oriented 3, no attention deficit, no fluctuation of consciousness. Patient has been compliant with his medications, no significant side effects so far. Tobacco Use In Past 30 Days: 5 or More Cigarettes/Day Alcohol Use: 4 or More Times Per Week Hospital Course Patient is a 26-year-old man, domiciled living alone, single, unemployed, past psychiatric history of schizophrenia as per history, anxiety, depression, alcohol use disorder, 1 prior psychiatric admission, a prior suicide attempt, has no current outpatient care, past medical history of hypertension and asthma, brought into the ER after neighbors had noted him to have bizarre behavior. As per chart, patient with history of daily drinking of alcohol prior to ER presentation had reported having last drank 5 days prior. While in the ER patient had reported auditory and visual hallucinations and paranoid ideations; exhibited tremors with abnormal labs consisting of elevated white count, calcium level, creatinine, LFTs, and a CPK level of 8196. While on the medical floor was one incident in which patient was agitated and was given Haldol and Ativan IM medications and put in 4 point restraint. Patient was previously on risperidone during his last hospitalization [facility] and this was restarted during this admission. Patient continued to endorse auditory or visual hallucinations with some paranoia and risperidone was increased to 3 mg by mouth twice a day. Patient's withdrawal was managed by primary medical team and followed for hypertension, rhabdomyolisis, and elevated LFTs. Patient seen today with high school social science teacher, patient had reported that he had no experiences any perceptual disturbances such as other hallucinations or visual hallucinations. He states that after having been restarted on his risperidone he had felt much better. Patient states of having felt that he needed to "not be the man I saw in the mirror when I was drunk". He states that he is looking forward to a change in his life and return to being sober from alcohol use. He reports that he had his longest period of sobriety when a half years and that he is able to reach sobriety again. He also mentions he is looking forward to returning back to work and continue with his outpatient follow-up. Patient at this time denies any suicidal homicidal ideations he denies any depressive manic or psychotic symptoms at this time. Patient is future oriented and plans on continuing current medication regimen as well as outpatient follow-up for continued stability. Patient agrees to be connected to outpatient rehabilitation program to reach sobriety and to outpatient medical care patient at this time no longer endorses any psychotic symptoms and no longer shows signs and symptoms of withdrawal. Patient at this time as a danger to self or others and is psychiatrically cleared for discharge. Patient had repeated labs which showed CPK had trended down to 1220 with CKMB of 2.3. Patient was medically cleared for discharge with instructions to follow up with primary care physician. Patient agreed with plan. Results Blood Pressure 147 / 75 Vital Signs Date Time Temp Pulse Resp B/P Pulse Ox O2 Delivery O2 Flow Rate FiO2 03/20/17 05:19 98.5 125 18 147/75 95 Laboratory Tests Test 03/19/17 03/20/17 12:00 12:02 Random Glucose 130 MG/DL (74-106) Aspartate Amino Transf 112 U/L (15-37) (AST/SGOT) Alanine Aminotransferase 84 U/L (12-78) (ALT/SGPT) Total Creatine Kinase 2484 U/L 1220 U/L (39-308) (39-308) Creatine Kinase MB 4.8 NG/ML (0.5-3.6) Triglycerides Level 198 MG/DL (42-150) Cholesterol Level 230 MG/DL (120-200) LDL Cholesterol 110 MG/DL (0-99) HDL Cholesterol 80.5 MG/DL (40.0-60.0) Laboratory Results Test 03/19/17 12:00 Hemoglobin A1c 5.3 % (4.3-6.0) Triglycerides Level 198 MG/DL (42-150) Cholesterol Level 230 MG/DL (120-200) LDL Cholesterol 110 MG/DL (0-99) HDL Cholesterol 80.5 MG/DL (40.0-60.0) Summary of Procedures No procedures performed Pending results at discharge: No Medications # of Antipsychotic meds at D/C: 1 Approp Antipsych med options 1 - Minimum of three failed multiple trials of monotherapy. 2 - Documented plan to taper to monotherapy due to previous use of multiple meds OR cross-taper in progress at D/C. 3 - Documentation of augmentation of Clozapine. 4 - Justification other than those listed in allowable values 1-3, document here : Discharge Discharge Date: Mar 20, 2017 Discharge Diagnosis: (1) Alcohol withdrawal Diagnosis: Secondary ICD Code: F10.239 (2) Paranoid schizophrenia Diagnosis: Principal ICD Code: F20.0 Mental Status Exam at Disch Appearance/behavior: Patient appears stated age, found in hospital clothing, sitting in hospital bed, fair hygiene and grooming, noted to be calm and cooperative with interview, fair eye contact. Speech: Normal rate tone and prosody Language: Fluent spontaneous Mood: "Good" Affect: Full, reactive Thought process: Linear organized, goal directed Thought content: Denies suicidal or homicidal ideation denied auditory or visual hallucinations, denies any delusions Insight: Fair Impulse control: Fair Judgment: Fair Alert and oriented 3 Pt Condition on Discharge: Fair Discharge Disposition: Discharge Home Discharge Instructions Diet Instructions: As Tolerated, No Restrictions Activities you can perform: Regular-No Restrictions Discharge Time > 30 minutes Discharge/Advance Care Plan Health Problems: (1) Paranoid schizophrenia Goals to promote your health * To prevent worsening of your condition and complications * To maintain your health at the optimal level Directions to meet your goals Take your medications as prescribed Follow your dietary instruction Follow activity as directed Keep your appointments as scheduled Take your immunizations and boosters as scheduled If your symptoms worsen call your PCP, if no PCP go to Urgent Care Center or Emergency Room For 18/03 questions related to your inpatient stay or results of tests pending at discharge, please contact Dr. Pb Brasher at Smoking is Dangerous to Your Health. Avoid second hand smoking Problem Qualifiers (1) Alcohol withdrawal: Qualified Code: F10.232 - Alcohol withdrawal, with perceptual disturbance Pb Brasher MD Mar 20, 2017 16:47
== END 2017-03-20 13:50 | disposition home or self-care (01) | DRG 885 ==
LOC: H4EA 12:02
PROVIDERS: ADMIT Psychiatry & Neurology Psychiatry; ATTEND Psychiatry & Neurology Psychiatry
DX: F20.0 Paranoid schizophrenia (principal); N17.9 Acute kidney failure, unspecified; M62.82 Rhabdomyolysis; Z78.1 Physical restraint status; F10.239 Alcohol dependence with withdrawal, unspecified; Z91.120 Patient's intentional underdosing of medication regimen due to financial hardship; I10 Essential (primary) hypertension; Z81.8 Family history of other mental and behavioral disorders; T43.596A Underdosing of other antipsychotics and neuroleptics, initial encounter; F17.210 Nicotine dependence, cigarettes, uncomplicated; R79.89 Other specified abnormal findings of blood chemistry
CPT/HCPCS: 80053; 80061; 82550; 82552; 83036

== ENCOUNTER 2017-07-07 13:16 | Inpatient (IN) | payer OTHER ==
[~2017-07-07] VITALS: Ht 162.6 cm; Wt 87.7 kg
[~2017-07-07 13:16] MED LIST changes: +AMBI10TA PO; +DIOV80TA4 PO; +HYDR25TA5 PO; +LISI-515 PO; +RISP1 PO; +RISP2TAB2 PO
[2017-07-07] MEDS ORDERED: ENOXAPARIN SODIUM 40 MG/0.4 ML SYRINGE SQ SCH (13:45)
[2017-07-07] MEDS ORDERED: SODIUM CHLORIDE 0.9% FLUSH 10 ML FLUSH IV FLUSH PRN ×3 (13:45→16:15)
[2017-07-07 16:00] VITALS: BP 133/77; PULSE 147; RESP 20; TEMP 98.7; O2SAT 94
[2017-07-07] MEDS ORDERED: SENNOSIDES 8.6 MG TAB PO PRN (16:00)
[2017-07-07] MEDS ORDERED: MAGNESIUM HYDROXIDE SUSP 30 ML CUP PO PRN (16:00)
[2017-07-07] MEDS ORDERED: oxyCODONE/ACETAMINOPHEN 5 MG/325 MG TAB PO PRN (16:00)
[2017-07-07] MEDS ORDERED: NALOXONE HCL 0.4 MG/ML AMP IV PUSH PRN (16:00)
[2017-07-07] MEDS ORDERED: ACETAMINOPHEN 325 MG TAB PO PRN ×2 (16:00)
[2017-07-07] MEDS ORDERED: BISACODYL 10 MG SUPP RECTAL PRN (16:00)
[2017-07-07] MEDS ORDERED: LACTULOSE SYRUP 20 GM/30 ML CUP PO PRN (16:00)
[2017-07-07] MEDS ORDERED: MORPHINE SULFATE 4 MG/ML INJ IV PUSH PRN ×2 (16:00)
[2017-07-07] MEDS ORDERED: HALOPERIDOL LACTATE 5 MG/ML AMP IM PRN (16:15)
[2017-07-07] MEDS ORDERED: LORazepam 2 MG/ML VIAL IV PUSH PRN ×3 (16:15)
[2017-07-07] MEDS ORDERED: cloNIDine HCL 0.1 MG TAB PO PRN (16:15)
[2017-07-07] MEDS ORDERED: PROCHLORPERAZINE 25 MG SUPP RECTAL PRN (16:15)
[2017-07-07] MEDS ORDERED: FLUMAZENIL 0.5 MG/5 ML VIAL IV PUSH PRN (16:15)
[2017-07-07] MEDS ORDERED: LORazepam 2 MG TAB PO PRN (16:15)
[2017-07-07] MEDS ORDERED: RESP: ALBUTEROL 2.5 MG/IPRATROPIUM 0.5 MG NEB (PRN) NEB (16:30)
[2017-07-07] MEDS: LORazepam 2 MG/ML VIAL IV PUSH PRN (16:41)
[2017-07-07] MEDS: ONDANSETRON HCL 4 MG/2 ML VIAL IVP PRN (16:42)
--- NOTE | 2017-07-07 16:45 | HHI.HP ---
[facility] Primary Care Physician No Primary Care Physician Admission Diagnosis Diagnoses: (1) Psychosis Diagnosis: Secondary (2) JAE (acute kidney injury) Diagnosis: Secondary (3) Elevated LFTs Diagnosis: Principal (4) Alcohol withdrawal Diagnosis: Principal (5) Tobacco abuse Diagnosis: Principal (6) Paranoid schizophrenia Diagnosis: Principal (7) Renal insufficiency Diagnosis: Secondary Chief Complaint: GI complaint Travel History International Travel<30 Days: No Contact w/Intl Traveler <30 Da: No Traveled to Known Affected Are: No History of Present Illness Patient is a 26-year-old male. He states for the last 7 days she's had maroon- colored blood in his stool as well as vomiting of [id number] substance. Patient states he is an alcoholic drinks a handle of [employer] daily states that his last drink was around midnight Has history of paranoid schizophrenia has been seen in the psychiatric unit last admission Has a chronic cough for the past week or so Will be admitted we'll consult gastroenterology. We'll consult psychiatry Review of Systems Constitutional: DENIES: Diaphoretic episodes, Fatigue, Fever, Weight gain, Weight loss, Chills, Dizziness, Change in appetite Endocrine: DENIES: Heat/cold intolerance, Polydipsia, Polyuria, Polyphagia Eyes: DENIES: Blurred vision, Diplopia, Eye inflammation Ears, nose, mouth, throat: DENIES: Tinnitus, Hearing loss, Vertigo, Nasal discharge, Odynophagia Respiratory: COMPLAINS OF: Cough, Shortness of breath, DENIES: Apneas, Snoring , Wheezing, Hemoptysis, Sputum production Cardiovascular: DENIES: Chest pain, Palpitations, Syncope, Dyspnea on Exertion Gastrointestinal: COMPLAINS OF: Black stools, Nausea, Vomiting, DENIES: Abdominal pain, Bloody stools, Constipation, Diarrhea Genitourinary: DENIES: Sexual dysfunction, Urinary frequency Musculoskeletal: DENIES: Joint pain, Muscle aches, Stiffness Integumentary: DENIES: Abnormal pigmentation, Nail changes Hematologic/lymphatic: DENIES: Bruising, Lymphadenopathy Immunologic/allergic: DENIES: Eczema, Urticaria Neurologic: DENIES: Abnormal gait, Headache, Localized weakness, Paresthesias, Seizures, Speech Problems Psychiatric: COMPLAINS OF: Anxiety, Confusion, Mood changes, Depression, Agitation Except as stated in HPI: all other systems reviewed are Neg Past Family Social History Past Medical History Paranoid schizophrenia Asthma Anxiety depression Hypertension Insomnia History of surgery to right ankle Past Surgical History [place] teeth removal Reported Medications Reported Meds & Active Scripts Active Reported Risperidone 2 Mg Tab 6 Mg PO HS Ambien (Zolpidem Tartrate) 10 Mg Tab 10 Mg PO HS PRN Diovan (Valsartan) 80 Mg Tab 80 Mg PO DAILY Allergies: Coded Allergies: No Known Allergies (Unverified Allergy, Unknown, 07/07/17) Active Ordered Medications Current Medications Clonidine (Catapres) 0.1 mg Q4H PRN PO SBP>160, DBP>90; Start 07/07/17 at 16: 15 Sodium Chloride 1,000 ml @ 100 mls/hr Q10H IV ; Start 07/07/17 at 16:00 Sodium Chloride (NS Flush) 2 ml UNSCH PRN IV FLUSH FLUSH AFTER USING IV ACCESS ; Start 07/07/17 at 13:45; Status UNV Sodium Chloride (NS Flush) 2 ml BID IV FLUSH ; Start 07/07/17 at 21:00 Acetaminophen (Tylenol) 650 mg Q4H PRN PO TEMP > 100.4; Start 07/07/17 at 16: 00 Ondansetron HCl (Zofran Inj) 4 mg Q6H PRN IVP NAUSEA OR VOMITING; Start at 16:15 Prochlorperazine (Compazine Supp) 25 mg Q12H PRN RECTAL NAUSEA OR VOMITING; Start 07/07/17 at 16:15 Enoxaparin Sodium (Lovenox Inj) 40 mg Q24H SQ ; Start 07/07/17 at 13:45; Stop 07/07/17 at 13:54; Status DC Acetaminophen (Tylenol) 650 mg Q6H PRN PO PAIN SCALE 1 TO 2; Start 07/07/17 at 16:00 Oxycodone/ Acetaminophen (Percocet 5-325 Mg) 1 tab Q6H PRN PO PAIN SCALE 3 TO 5; Start 07/07/17 at 16:00 Oxycodone/ Acetaminophen (Percocet 10-325 Mg) 1 tab Q6H PRN PO PAIN SCALE 6 TO 10; Start 07/07/17 at 16:00 Morphine Sulfate (Morphine Inj) 2 mg Q3H PRN IV PUSH Pain 3-5; if unable to take PO; Start 07/07/17 at 16:00 Morphine Sulfate (Morphine Inj) 4 mg Q3H PRN IV PUSH Pain 6-10;if unable to take PO; Start 07/07/17 at 16:00 Naloxone HCl (Narcan Inj) 0.4 mg UNSCH PRN IV PUSH SEE LABEL COMMENTS; Start 07/07/17 at 16:00 Senna/Docusate Sodium (Lida-Colace) 1 tab BID PO ; Start 07/07/17 at 21:00 Magnesium Hydroxide (Milk Of Magnesia Liq) 30 ml Q12H PRN PO Mild constipation ; Start 07/07/17 at 16:00 Sennosides (Senokot) 17.2 mg Q12H PRN PO Moderate constipation; Start at 16:00 Bisacodyl (Dulcolax Supp) 10 mg DAILY PRN RECTAL SEVERE CONSITIPATION; Start 07/07/17 at 16:00 Lactulose (Lactulose Liq) 30 ml DAILY PRN PO SEVERE CONSITIPATION; Start 07/07 at 16:00 Flumazenil (Romazicon Inj) 0.2 mg Q1M PRN IV PUSH SEE LABEL COMMENTS; Start at 16:15 Lorazepam (Ativan) 1 mg Q4H PRN PO CIWA 8 - 10; Start 07/07/17 at 16:15 Lorazepam (Ativan Inj) 1 mg Q4H PRN IV PUSH CIWA 8 - 10; Start 07/07/17 at 16: 15 Lorazepam (Ativan) 2 mg Q2H PRN PO CIWA 11-14; Start 07/07/17 at 16:15 Lorazepam (Ativan Inj) 2 mg Q2H PRN IV PUSH CIWA 11-14; Start 07/07/17 at 16: 15 Lorazepam (Ativan Inj) 2 mg Q1H PRN IV PUSH CIWA 15-20; Start 07/07/17 at 16: 15 Lorazepam (Ativan Inj) 2 mg Q15M PRN IV PUSH CIWA > 20; Start 07/07/17 at 16: 15 Haloperidol Lactate (Haldol Inj) 2 mg Q15M PRN IM SEE LABEL COMMENTS; Start at 16:15 Valsartan (Diovan) 80 mg DAILY PO ; Start 07/08/17 at 09:00 Risperidone (risperDAL) 6 mg HS PO ; Start 07/07/17 at 21:00 Sodium Chloride (NS Flush) 2 ml UNSCH PRN IV FLUSH FLUSH AFTER USING IV ACCESS ; Start 07/07/17 at 14:00; Status UNV Sodium Chloride (NS Flush) 2 ml BID IV FLUSH ; Start 07/07/17 at 21:00; Status UNV Pantoprazole Sodium (Protonix Inj) 40 mg BID IV PUSH ; Start 07/07/17 at 21:00 Sodium Chloride (NS Flush) 2 ml UNSCH PRN IV FLUSH FLUSH AFTER USING IV ACCESS ; Start 07/07/17 at 16:15 Sodium Chloride (NS Flush) 2 ml BID IV FLUSH ; Start 07/07/17 at 21:00; Status UNV Folic Acid (Folate) 1 mg DAILY PO ; Start 07/07/17 at 16:00; Stop 07/12/17 at 15:59 Thiamine HCl (Vitamin B1) 100 mg DAILY PO ; Start 07/07/17 at 16:00 Multivitamins/ Minerals Therapeutic (Theragran M Tab) 1 tab DAILY PO ; Start at 16:15; Stop 07/12/17 at 16:14 Albuterol/ Ipratropium (Duoneb Neb) 1 ampule Q4HR NEB PRN NEB sob/cough; Start 07/07/17 at 16:30; Status UNV Benzonatate (Tessalon) 200 mg TID PRN PO cough; Start 07/07/17 at 16:30; Status UNV Family History Psychiatric issues Hypertension Social History Drinks daily about a handle of bourbon daily Uses dip for tobacco Denies any illicits Physical Exam Vital Signs Vital Signs Date Time Temp Pulse Resp B/P (MAP) Pulse Ox O2 Delivery O2 Flow Rate FiO2 07/07/17 11:08 18 07/07/17 11:05 98.7 140 121/80 (94) 95 Physical Exam GENERAL: This is a well-nourished, well-developed patient, in no apparent distress. SKIN: No rashes, ecchymoses or lesions. Cool and dry. HEAD: Atraumatic. Normocephalic. No temporal or scalp tenderness. EYES: Pupils equal round and reactive. Extraocular motions intact. No scleral icterus. No injection or drainage. ENT: Nose without bleeding, purulent drainage or septal hematoma. Throat without erythema, tonsillar hypertrophy or exudate. Uvula midline. Airway patent. NECK: Trachea midline. No JVD or lymphadenopathy. Supple, nontender, no meningeal signs. CARDIOVASCULAR: Regular rate and rhythm without murmurs, gallops, or rubs. RESPIRATORY: Clear to auscultation. Breath sounds equal bilaterally. No wheezes , rales, or rhonchi. GASTROINTESTINAL: Abdomen soft, non-tender, nondistended. No hepato-splenomegaly , or palpable masses. No guarding. MUSCULOSKELETAL: Extremities without clubbing, cyanosis, or edema. No joint tenderness, effusion, or edema noted. No calf tenderness. Negative Homans sign bilaterally. NEUROLOGICAL: Awake and alert. Cranial nerves II through XII intact. Motor and sensory grossly within normal limits. Five out of 5 muscle strength in all muscle groups. Normal speech. Laboratory Labs Laboratory Tests Test 07/07/17 11:24 White Blood Count 7.6 TH/MM3 Red Blood Count 5.40 MIL/MM3 Hemoglobin 18.2 GM/DL Hematocrit 49.6 % Mean Corpuscular Volume 91.9 FL Mean Corpuscular Hemoglobin 33.7 PG Mean Corpuscular Hemoglobin Concent 36.5 % Red Cell Distribution Width 11.9 % Platelet Count 130 TH/MM3 Mean Platelet Volume 11.2 FL Immature Granulocyte % (Auto) 0.8 % Neutrophils (%) (Auto) 71.8 % Lymphocytes (%) (Auto) 5.4 % Monocytes (%) (Auto) 21.7 % Eosinophils (%) (Auto) 0.0 % Basophils (%) (Auto) 0.3 % Immature Granulocyte # (Auto) 0.1 TH/MM3 Neutrophils # (Auto) 5.4 TH/MM3 Lymphocytes # (Auto) 0.4 TH/MM3 Monocytes # (Auto) 1.6 TH/MM3 Eosinophils # (Auto) 0.0 TH/MM3 Basophils # (Auto) 0.0 TH/MM3 CBC Comment DIFF FINAL Differential Comment Prothrombin Time 10.8 SEC Prothromb Time International Ratio 1.1 RATIO Activated Partial Thromboplast Time 24.1 SEC Blood Urea Nitrogen 6 MG/DL Creatinine 0.90 MG/DL Random Glucose 134 MG/DL Total Protein 7.8 GM/DL Albumin 3.3 GM/DL Calcium Level 8.9 MG/DL Alkaline Phosphatase 128 U/L Aspartate Amino Transf (AST/SGOT) 233 U/L Alanine Aminotransferase (ALT/SGPT) 103 U/L Total Bilirubin 1.3 MG/DL Sodium Level 134 MEQ/L Potassium Level 3.0 MEQ/L Chloride Level 94 MEQ/L Carbon Dioxide Level 22.0 MEQ/L Anion Gap 18 MEQ/L Estimat Glomerular Filtration Rate 101 ML/MIN Troponin I LESS THAN 0.02 NG/ML Ethyl Alcohol Level 206 MG/DL Imaging Chest, Single AP Signed EXAM DATE/TIME: 07/07/2017 11:15 [place] COMPARISON: No previous studies available for comparison. INDICATIONS : Coughing. MEDICAL HISTORY : None. SURGICAL HISTORY : None. ENCOUNTER: Initial ACUITY: 1 day PAIN SCORE: 5/10 LOCATION: chest FINDINGS: A single view of the chest demonstrates the lungs to be symmetrically aerated without evidence of mass, infiltrate or effusion. The cardiomediastinal contours are unremarkable. Osseous structures are intact. CONCLUSION: No acute disease. Caprini VTE Risk Assessment Caprini VTE Risk Assessment: Mod/High Risk (score >= 2) Caprini Risk Assessment Model Point Value = 1 Point Value = 2 Point Value = 3 Point Value = 5 Age 41-60 Minor surgery BMI > 25 kg/m2 Swollen legs Varicose veins or History of unexplained or recurrent spontaneous Oral contraceptives or hormone replacement Sepsis (< 1 month) Serious lung disease, including pneumonia (< 1 month) Abnormal pulmonary function Acute myocardial infarction Congestive heart failure (< 1 month) History of inflammatory bowel disease Medical patient at bed rest Age 61-74 Arthroscopic surgery Major open surgery (> 45 min) Laparoscopic surgery (> 45 min) Malignancy Confined to bed (> 72 hours) Immobilizing plaster cast Central venous access Age >= 75 History of VTE Family history of VTE Factor V Leiden Prothrombin [id number] Lupus anticoagulant Anticardiolipin antibodies Elevated serum homocysteine Heparin-induced thrombocytopenia Other congenital or acquired thrombophilia Stroke (< 1 month) Elective arthroplasty Hip, pelvis, or leg fracture Acute spinal cord injury (< 1 month) Prophylaxis Regimen Total Risk Factor Score Risk Level Prophylaxis Regimen 0-1 Low Early ambulation 2 Moderate Order ONE of the following: *Sequential Compression Device (SCD) *Heparin 5000 units SQ BID 3-4 Higher Order ONE of the following medications: *Heparin 5000 units SQ TID *Enoxaparin/Lovenox 40 mg SQ daily (WT < 150 kg, CrCl > 30 mL/min) *Enoxaparin/Lovenox 30 mg SQ daily (WT < 150 kg, CrCl > 10-29 mL/min) *Enoxaparin/Lovenox 30 mg SQ BID (WT < 150 kg, CrCl > 30 mL/min) AND/OR *Sequential Compression Device (SCD) 5 or more Highest Order ONE of the following medications: *Heparin 5000 units SQ TID (Preferred with Epidurals) *Enoxaparin/Lovenox 40 mg SQ daily (WT < 150 kg, CrCl > 30 mL/min) *Enoxaparin/Lovenox 30 mg SQ daily (WT < 150 kg, CrCl > 10-29 mL/min) *Enoxaparin/Lovenox 30 mg SQ BID (WT < 150 kg, CrCl > 30 mL/min) AND *Sequential Compression Device (SCD) Assessment and Plan Problem List: (1) Elevated LFTs ICD Code: R79.89 - Other specified abnormal findings of blood chemistry Status: Acute (2) Tobacco abuse ICD Code: Z72.0 - Tobacco use Status: Chronic (3) Alcohol withdrawal ICD Code: F10.239 - Alcohol dependence with withdrawal, unspecified Status: Acute (4) Paranoid schizophrenia ICD Code: F20.0 - Paranoid schizophrenia Status: Acute (5) Renal insufficiency ICD Code: N28.9 - Disorder of kidney and ureter, unspecified Status: Acute (6) Psychosis ICD Code: F29 - Unspecified psychosis not due to a substance or known physiological condition Status: Acute Assessment and Plan Alcohol abuse with impending withdrawals and delirium tremens --continue on the CIWA protocol with Ativan and Librium Possible drug abuse --urine drug screen pending Possible GI bleed--possible upper GI bleed due to extensive alcohol abuse-- trend hemoglobins and hematocrits-- consult gastroenterology continue on Protonix Possible hematemesis Tobacco abuse continue on NicoDerm patch as needed --recommend stopping dip Psychiatric disorder we'll consult psychiatry continue on home medications for possible paranoid schizophrenia Hypokalemia replaced by oral medications Check a magnesium level and replace if needed tomorrow Hypertension resume home medications A.m. labs CBC CMP TSH free T4 hemoglobin A1c magnesium and phosphorus Case management regarding discharge Physician Certification 2 Midnight Certification Type: Admission for Inpatient Services Order for Inpatient Services The services are ordered in accordance with Medicare regulations or non- Medicare payer requirements, as applicable. In the case of services not specified as inpatient-only, they are appropriately provided as inpatient services in accordance with the 2-midnight benchmark. Estimated LOS (days): 3 3 days is the estimated time the patient will need to remain in the hospital, assuming treatment plan goals are met and no additional complications. Post-Hospital Plan: Not yet determined James Jamison DO Jul 07, 2017 16:44
[2017-07-07] MEDS: THIAMINE HCL 100 MG TAB PO SCH (16:52)
[2017-07-07] MEDS: SODIUM CHLOR 0.9% 1000 ML INJ 1,000 ML IV SCH (16:52)
[2017-07-07] MEDS: BENZONATATE 100 MG CAP PO PRN (16:52)
[2017-07-07] MEDS: FOLIC ACID 1 MG TAB PO SCH (16:53)
[2017-07-07] MEDS: MULTIVITAMINS/MINERALS THERAPEUTIC TAB PO SCH (16:53)
[2017-07-07] MEDS: oxyCODONE/ACETAMINOPHEN 10 MG/325 MG TAB PO PRN (16:53)
[2017-07-07] MEDS ORDERED: NICOTINE 14 MG/24 HR PATCH T-DERMAL ONE (17:00)
[2017-07-07 18:25] LABS: HEMATOCRIT 39.6 % (39.0-51.0)
[2017-07-07 18:32] LABS: REVIEW FLAG FINAL
[2017-07-07 18:54] LABS: CREATINE KINASE 3018 U/L (39-308)
[2017-07-07 19:06] LABS: CKMB 27.2 NG/ML (0.5-3.6)
[2017-07-07 20:00] VITALS: BP 144/89; PULSE 126; RESP 20; TEMP 99.5; O2SAT 94
[2017-07-07 21:00] VITALS: PULSE 128
[2017-07-07] MEDS ORDERED: risperiDONE 3 MG TAB PO SCH (21:00)
[2017-07-07] MEDS: DOCUSATE SODIUM 50 MG/SENNA 8.6 MG TAB PO SCH (21:00)
[2017-07-07] MEDS ORDERED: SODIUM CHLORIDE 0.9% FLUSH 10 ML FLUSH IV FLUSH SCH ×2 (21:00)
[2017-07-07] MEDS: LORazepam 1 MG TAB PO PRN (21:14)
[2017-07-07] MEDS: SODIUM CHLORIDE 0.9% FLUSH 10 ML FLUSH IV FLUSH SCH (21:14)
[2017-07-07] MEDS: PANTOPRAZOLE SODIUM 40 MG VIAL IV PUSH SCH (21:14)
[2017-07-07] MEDS: ZOLPIDEM TARTRATE 5 MG TAB PO ONE ×2 (21:14→21:22)
[2017-07-08] VITALS (7 sets, daily range): BP systolic 134–151; BP diastolic 70–89; PULSE 46–112; RESP 18–22; TEMP 98.6–99.3; O2SAT 94–99
[2017-07-08] MEDS: oxyCODONE/ACETAMINOPHEN 10 MG/325 MG TAB PO PRN ×4 (00:01→22:22)
[2017-07-08 00:55] LABS: HEMATOCRIT 37.5 % (39.0-51.0)
[2017-07-08 00:57] LABS: REVIEW FLAG FINAL
[2017-07-08 01:30] LABS: ALKALINE PHOSPHATASE 84 U/L (45-117); ALT (GPT) 72 U/L (12-78); ANION GAP 11 MEQ/L (5-15); AST (GOT) 183 U/L (15-37); BICARBONATE 25.3 MEQ/L (21.0-32.0); BLOOD UREA NITROGEN 10 MG/DL (7-18); CHLORIDE 97 MEQ/L (98-107); CREATINE KINASE 2683 U/L (39-308); FREE T4 0.94 NG/DL (0.76-1.46); GLOMERULAR FILTRATION RATE 105 ML/MIN (>89); MAGNESIUM 0.8 MG/DL (1.5-2.5); SODIUM (NA) 133 MEQ/L (136-145); TOTAL BILIRUBIN ADULT 1.1 MG/DL (0.2-1.0)
[2017-07-08 01:36] LABS: POTASSIUM 2.9 MEQ/L (3.5-5.1)
[2017-07-08 01:49] LABS: CKMB 16.4 NG/ML (0.5-3.6)
[2017-07-08] MEDS ORDERED: POTASSIUM CHLORIDE 10 MEQ CONTROLLED RELEASE TAB PO ONE (02:30)
[2017-07-08] MEDS: BENZONATATE 100 MG CAP PO PRN (02:39)
[2017-07-08] MEDS: MAGNESIUM SULFATE 1 GM PREMIX 100 ML IV SCH ×2 (02:39→03:42)
[2017-07-08] MEDS: ONDANSETRON HCL 4 MG/2 ML VIAL IVP PRN (04:52)
[2017-07-08] MEDS: LORazepam 2 MG/ML VIAL IV PUSH PRN ×2 (04:52→09:28)
[2017-07-08] MEDS: SODIUM CHLOR 0.9% 1000 ML INJ 1,000 ML IV SCH (04:56)
[2017-07-08 06:45] LABS: AUTOMATED NEUTROPHIL # 2.4 TH/MM3 (1.8-7.7); BASOPHIL % 0.2 % (0.0-2.0); EOSINOPHIL % 0.2 % (0.0-4.0); HEMATOCRIT 37.5 % (39.0-51.0); LYMPH % 14.4 % (9.0-44.0); LYMPHOCYTE # 0.6 TH/MM3 (1.0-4.8); MEAN CELL VOLUME 97.5 FL (80.0-100.0); MEAN CORPUSCULAR HEMOGLOBIN 33.8 PG (27.0-34.0); MEAN CORPUSCULAR HGB CONC 34.7 % (32.0-36.0); MONO % 23.3 % (0.0-8.0); NEUT % 61.9 % (16.0-70.0); PLATELET COUNT 72 TH/MM3 (150-450); RED BLOOD COUNT 3.84 MIL/MM3 (4.50-5.90); RED CELL DISTRIBUTION WIDTH 13.3 % (11.6-17.2); WHITE BLOOD COUNT 3.9 TH/MM3 (4.0-11.0)
[2017-07-08 06:49] LABS: HEMO FLAGS AUTO DIFF
[2017-07-08] MEDS ORDERED: POTASSIUM CHLORIDE 20 MEQ PWD PACKET PO ONE (08:30)
[2017-07-08] MEDS: THIAMINE HCL 100 MG TAB PO SCH (09:07)
[2017-07-08] MEDS: MULTIVITAMINS/MINERALS THERAPEUTIC TAB PO SCH (09:07)
[2017-07-08] MEDS: FOLIC ACID 1 MG TAB PO SCH (09:07)
[2017-07-08] MEDS: PANTOPRAZOLE SODIUM 40 MG VIAL IV PUSH SCH ×2 (09:07→22:23)
[2017-07-08] MEDS: DOCUSATE SODIUM 50 MG/SENNA 8.6 MG TAB PO SCH ×2 (09:07→22:23)
[2017-07-08] MEDS: VALSARTAN 80 MG TAB PO SCH (09:07)
[2017-07-08] MEDS: SODIUM CHLORIDE 0.9% FLUSH 10 ML FLUSH IV FLUSH SCH ×2 (09:07→22:23)
[2017-07-08] MEDS ORDERED: INFLUENZA VIRUS VACCINE (QUADRIVALENT) 0.5 ML SYR IM ONE (10:00)
[2017-07-08 10:43] LABS: PLATELET ESTIMATE SMEAR LOW (NORMAL); PLATELET MORPHOLOGY NORMAL (NORMAL); SCAN/DIFF AUTO DIFF CONFIRMED
--- NOTE | 2017-07-08 10:49 | HHI.PR ---
Subjective Remarks Delirium tremens is under better control. Patient reports hematemesis and hematochezia which is not present today but was present prior to him coming to the hospital. He says this is the primary reason that triggered him to come to the hospital. No anemia is present. Objective Vital Signs Date Time Temp Pulse Resp B/P (MAP) Pulse Ox O2 Delivery O2 Flow Rate FiO2 07/08/17 09:00 94 21 07/08/17 08:00 98.9 103 20 140/89 (106) 94 07/08/17 04:00 98.6 46 22 151/82 (105) 96 07/08/17 00:00 99.3 112 22 140/76 (97) 99 07/07/17 21:00 128 07/07/17 20:00 99.5 126 20 144/89 (107) 94 07/07/17 20:00 Room Air 07/07/17 16:00 98.7 147 20 133/77 (95) 94 I/O 07/07/17 07/07/17 07/07/17 07/08/17 07/08/17 07/08/17 07:00 15:00 23:00 07:00 15:00 23:00 Intake Total 320 ml 400 ml Output Total 300 ml 350 ml Balance 20 ml 50 ml Intake Oral 320 ml 400 ml Output Urine Total 300 ml 350 ml # Bowel Movements 0 1 Result Diagram: 07/08/17 0535 07/08/17 0022 Objective Remarks GENERAL: NAD, A&Ox3 HEAD: Normocephalic. NECK: Supple, trachea midline. No lymphadenopathy. EYES: No scleral icterus. No injection or drainage. CARDIOVASCULAR: Regular rate and rhythm without murmurs, gallops, or rubs. RESPIRATORY: Breath sounds equal bilaterally. No accessory muscle use. GASTROINTESTINAL: Abdomen soft, non-tender, nondistended. MUSCULOSKELETAL: No cyanosis, or edema. SKIN: Warm and dry. NEURO: No focal neurological deficitis. No tremors. A/P Problem List: (1) Elevated LFTs ICD Code: R79.89 - Other specified abnormal findings of blood chemistry Status: Acute (2) Alcohol withdrawal ICD Code: F10.239 - Alcohol dependence with withdrawal, unspecified Status: Acute (3) Tobacco abuse ICD Code: Z72.0 - Tobacco use Status: Chronic (4) Psychosis ICD Code: F29 - Unspecified psychosis not due to a substance or known physiological condition Status: Acute (5) Renal insufficiency ICD Code: N28.9 - Disorder of kidney and ureter, unspecified Status: Acute (6) Paranoid schizophrenia ICD Code: F20.0 - Paranoid schizophrenia Status: Acute (7) Rhabdomyolysis ICD Code: M62.82 - Rhabdomyolysis Status: Acute (8) JAE (acute kidney injury) ICD Code: N17.9 - Acute kidney failure, unspecified Status: Acute Assessment and Plan Assessment and Plan 26-year-old male admitted secondary to GI bleed and delirium tremens. Delirium tremens Continue CIWA protocol. Continue Ativan and Librium Continue folic acid Continue thiamine Wean sedatives as tolerated Recent GI bleed No anemia Follow hemoglobin GI consulted Continue Protonix Nicotine dependence Continue NicoDerm History of schizophrenia Psychiatry has been consulted Mental condition may have been contributory to his alcohol abuse and or GI bleeding Hypokalemia Monitor levels and replace as needed Hypertension Continue baseline treatments Follow blood pressure DVT prophylaxis SCDs Lanre Murphy MD Jul 08, 2017 10:49
--- NOTE | 2017-07-08 11:49 | PD.CONS ---
HPI History of Present Illness This is a 26 year old male who presented to the emergency room for evaluation of gastrointestinal bleeding. The patient reports that he started having nausea /vomiting with black emesis about a week ago. He had associated periumbilical pain that he describes as a constant sharp pain. This seems to be aggravated by po intake and therefore he has not really been eating for the past 5 days. He complains of significant heartburn/reflux every time he tries to eat. He also started having melanotic stool around the same time. He reports that he has been having multiple black loose stools, with occasional small amount red blood mixed within this. He denies any history of peptic ulcer disease or prior GI bleeding. He has never had an EGD/Colonoscopy. He does drink a significant amount of alcohol- "1/4 of a 1/2 gallon." per day. He last drank the day prior to his admission. He denies any history of liver disease in himself or other family members. (Yasmin Robison) PFSH Past Medical History Paranoid schizophrenia Asthma Anxiety depression Hypertension Insomnia History of surgery to right ankle ETOH abuse Past Surgical History [place] teeth removal Right ankle surgery (Yasmin Robison) Coded Allergies: No Known Allergies (Unverified Allergy, Unknown, 07/07/17) Medications Allergies Coded Allergies Type Severity Reaction Last Updated Verified No Known Allergies Allergy Unknown 07/07/17 No Active Scripts Medications Dose Route/Sig Max Daily Dose Days Date Category Risperidone 2 Mg Tab 6 Mg PO HS 07/07/17 Reported Ambien (Zolpidem Tartrate) 10 Mg Tab 10 Mg PO HS PRN 07/07/17 Reported Diovan (Valsartan) 80 Mg Tab 80 Mg PO DAILY 07/07/17 Reported Family History Denies any medical issues in mother and father. Social History 1/4 of a 1/2 gallon of bourbon daily Uses dip for tobacco Denies any illicit drugs (Yasmin Robison) Review of Systems Constitutional: COMPLAINS OF: Fatigue, DENIES: Weight loss Cardiovascular: DENIES: Chest pain Gastrointestinal: COMPLAINS OF: Abdominal pain, Black stools, Bloody stools, Diarrhea, Nausea, Vomiting, Heartburn, Hematemesis Neurologic: DENIES: Headache Psychiatric: DENIES: Confusion (Yasmin Robison) GI Exam Vitals I&O Vital Signs Date Time Temp Pulse Resp B/P (MAP) Pulse Ox O2 Delivery O2 Flow Rate FiO2 07/08/17 09:00 94 21 07/08/17 08:00 98.9 103 20 140/89 (106) 94 07/08/17 04:00 98.6 46 22 151/82 (105) 96 07/08/17 00:00 99.3 112 22 140/76 (97) 99 07/07/17 21:00 128 07/07/17 20:00 99.5 126 20 144/89 (107) 94 07/07/17 20:00 Room Air 07/07/17 16:00 98.7 147 20 133/77 (95) 94 I/O 07/07/17 07/07/17 07/07/17 07/08/17 07/08/17 07/08/17 07:00 15:00 23:00 07:00 15:00 23:00 Intake Total 320 ml 400 ml Output Total 300 ml 350 ml Balance 20 ml 50 ml Intake Oral 320 ml 400 ml Output Urine Total 300 ml 350 ml # Bowel Movements 0 1 Laboratory Test 07/07/17 17:50 07/08/17 00:22 07/08/17 05:35 Hemoglobin 14.4 GM/DL 12.9 GM/DL 13.0 GM/DL Hematocrit 39.6 % 37.5 % 37.5 % Total Creatine Kinase 3018 U/L 2683 U/L Creatine Kinase MB 27.2 NG/ML 16.4 NG/ML Creatine Kinase MB % 0.9 % 0.6 % Troponin I LESS THAN 0.02 NG/ML 0.02 NG/ML Blood Urea Nitrogen 10 MG/DL Creatinine 0.87 MG/DL Random Glucose 85 MG/DL Total Protein 5.6 GM/DL Albumin 2.5 GM/DL Calcium Level 7.2 MG/DL Phosphorus Level 1.1 MG/DL Magnesium Level 0.8 MG/DL Alkaline Phosphatase 84 U/L Aspartate Amino Transf (AST/SGOT) 183 U/L Alanine Aminotransferase (ALT/SGPT) 72 U/L Total Bilirubin 1.1 MG/DL Sodium Level 133 MEQ/L Potassium Level 2.9 MEQ/L Chloride Level 97 MEQ/L Carbon Dioxide Level 25.3 MEQ/L Anion Gap 11 MEQ/L Estimat Glomerular Filtration Rate 105 ML/MIN Protein Corrected Calcium 8.0 MG/DL Free Thyroxine 0.94 NG/DL Thyroid Stimulating Hormone 3rd Gen 2.730 uIU/ML White Blood Count 3.9 TH/MM3 Red Blood Count 3.84 MIL/MM3 Mean Corpuscular Volume 97.5 FL Mean Corpuscular Hemoglobin 33.8 PG Mean Corpuscular Hemoglobin Concent 34.7 % Red Cell Distribution Width 13.3 % Platelet Count 72 TH/MM3 Mean Platelet Volume 8.9 FL Neutrophils (%) (Auto) 61.9 % Lymphocytes (%) (Auto) 14.4 % Monocytes (%) (Auto) 23.3 % Eosinophils (%) (Auto) 0.2 % Basophils (%) (Auto) 0.2 % Neutrophils # (Auto) 2.4 TH/MM3 Lymphocytes # (Auto) 0.6 TH/MM3 Monocytes # (Auto) 0.9 TH/MM3 Eosinophils # (Auto) 0.0 TH/MM3 Basophils # (Auto) 0.0 TH/MM3 CBC Comment AUTO DIFF Differential Comment AUTO DIFF CONFIRMED Platelet Estimate LOW Platelet Morphology Comment NORMAL Physical Examination HEENT: Normocephalic; atraumatic; no jaundice. CHEST: CTA CARDIAC: RRR ABDOMEN: Soft, nondistended, nontender; no hepatosplenomegaly; bowel sounds are present in all four quadrants. EXTREMITIES: No clubbing, cyanosis, or edema. SKIN: Normal; no rash; no jaundice. DIRECTOR OF CLAIMS: No focal deficits; alert and oriented times three. (Yasmin Robison) Assessment and Plan Plan ASSESSMENT: - GIB, Hematemesis, Melena. Pt reports 1 week history of intermittent n/v with black emesis and frequent melanotic stool- with small amount red blood. Pt has significant ETOH intake and is complaining of heartburn/ reflux every time he tries to eat, periumbilical pain. He denies PUD. Never had EGD. HH stable 13.0/37.5. - Elevated LFTs. T. Bili 1.1, AST 183, ALT 72, Alk Phosph 84. Likely related to ETOH abuse. Will get US and hepatitis profile. - Rhabdo. CPK 2683. IVF per attending. - Schizophrenia, asthma, anxiety, depression, htn per attending. PLAN: - Plan for egd in am - Obtain consents - NPO after MN - Protonix 40mg IV BID - Monitor HH - Transfuse as necessary - RUQ US - Hepatitis profile - CBC, CMP in am - ETOH Cessation - Supportive care - Further recommendations to follow based on results of above - Pt seen and examined by Dr. Brandon and myself and this note is written on his behalf (Yasmin Robison) Physician Comments Patient seen and examined Agree with above Continue with current supportive care Monitor labs Most likely patient has acute alcoholic hepatitis We will proceed with an EGD tomorrow (Jero Brandon MD) Yasmin Robison Jul 08, 2017 11:49 Jero Brandon MD Jul 08, 2017 19:38
[2017-07-08 14:31] LABS: PROTHROMBIN TIME - PATIENT 11.1 SEC (9.8-11.6)
--- NOTE | 2017-07-08 14:44 | PD.PSY.CON ---
Provisional Diagnosis Admission Date Jul 07, 2017 at 15:38 [place] I. Alcohol use disorder, schizophrenia [place] II. Deferred [place] III. GI bleeding History of Present Illness Service Psychiatry Consult Requested By Medical team Reason for Consult Medication adjustment Primary Care Physician No Primary Care Physician HPI The patient is a 26-year-old man, domiciled in [place], single, unemployed, with psychiatric history of schizophrenia, 1 previous psychiatric hospitalization here at [facility] in February 2017, documentation reviewed, no previous suicidal attempts, he is on Risperdal 3 mg twice a day, severe alcohol use disorder, history of withdrawals, DTs, no significant medical history, who came to the ER due to GI bleeding, He states for the last 7 days she's had maroon-colored blood in his stool as well as vomiting of [id number] substance. Patient states he is an alcoholic drinks a handle of bourbon daily states that his last drink was around midnight. On psychiatric evaluation today patient is pleasant, cooperative and calm. Patient reports that he has been increasing his alcohol intake to the point that he has hurt himself "now I am bleeding, and I need to stop". She reports that he feels motivated to try everything is available to stop alcohol. He denies depressive symptoms, he denies anxiety, he denies raquel or psychosis. She denies suicidal and homicidal ideation, he denies visual and auditory hallucinations. The patient is oriented 3, without any fluctuation of consciousness, no gross cognitive impairment present. At this moment the patient doesn't have any objective or subjective symptoms of withdrawal. Patient reports daily use of alcohol, denies the use of illicit drugs. He does report episodic paranoia "but I cannot tell he if this is related with alcohol or not". He denies paranoia at this moment. Review of Systems Constitutional: DENIES: Diaphoretic episodes, Fatigue, Fever, Weight gain, Weight loss, Chills, Dizziness, Change in appetite, Night Sweats Endocrine: DENIES: Heat/cold intolerance, Polydipsia, Polyuria, Polyphagia Eyes: DENIES: Blurred vision, Diplopia, Eye inflammation, Eye pain, Vision loss , Photosensitivity, Double Vision Ears, nose, mouth, throat: DENIES: Tinnitus, Hearing loss, Vertigo, Nasal discharge, Oral lesions, Throat pain, Hoarseness, Ear Pain, Running Nose, Epistaxis, Sinus Pain, Toothache, Odynophagia Respiratory: DENIES: Apneas, Cough, Snoring, Wheezing, Hemoptysis, Sputum production, Shortness of breath Cardiovascular: DENIES: Chest pain, Palpitations, Syncope, Dyspnea on Exertion , PND, Lower Extremity Edema, Orthopnea, Claudication Gastrointestinal: COMPLAINS OF: Black stools, DENIES: Abdominal pain, Bloody stools, Constipation, Diarrhea, Nausea, Vomiting, Difficulty Swallowing, Anorexia Genitourinary: DENIES: Sexual dysfunction, Urinary frequency, Urinary incontinence, Urgency, Hematuria, Dysuria, Nocturia, Penile Discharge, Testicular Pain, Testicular Swelling Musculoskeletal: DENIES: Joint pain, Muscle aches, Stiffness, Joint Swelling, Back pain, Neck pain Integumentary: DENIES: Abnormal pigmentation, Nail changes, Pruritus, Rash Hematologic/lymphatic: DENIES: Bruising, Lymphadenopathy Immunologic/allergic: DENIES: Eczema, Urticaria Neurologic: DENIES: Abnormal gait, Headache, Localized weakness, Paresthesias, Seizures, Speech Problems, Tremor, Poor Balance Psychiatric: DENIES: Anxiety, Confusion, Mood changes, Depression, Hallucinations, Agitation, Suicidal Ideation, Homicidal Ideation, Delusions Past Family Social History Coded Allergies: No Known Allergies (Unverified Allergy, Unknown, 07/07/17) Reported Medications Risperidone (Risperidone) 2 Mg Tab, 6 MG PO HS, #30 TAB 0 Refills 07/07/17 Zolpidem (Ambien) 10 Mg Tab, 10 MG PO HS Y for INSOMNIA, TAB 0 Refills 07/07/17 Valsartan (Diovan) 80 Mg Tab, 80 MG PO DAILY, #30 TAB 0 Refills 07/07/17 Discontinued Reported Medications Lisinopril-Hctz (Lisinopril-Hctz) 20-25 Mg Tab, 1 TAB PO DAILY for Blood Pressure Management, #30 TAB 0 Refills 03/17/17 Risperidone (Risperdal) 2 Mg Tab, 2 MG PO Q12HR, #60 TAB 0 Refills 03/17/17 Benzonatate (Tessalon Perles) 100 Mg Cap, 200 MG PO TID Y for COUGH, CAP 0 Refills 03/17/17 Discontinued Scripts Hydrochlorothiazide (Hydrochlorothiazide) 25 Mg Tab, 25 MG PO DAILY for health, #30 TAB Prov:Pb Brasher MD 03/20/17 Lisinopril (Lisinopril) 20 Mg Tab, 20 MG PO DAILY for health, #30 TAB Prov:Pb Brasher MD 03/20/17 Metoprolol Tartrate (Metoprolol Tartrate) 25 Mg Tab, 25 MG PO TID for health, # 90 TAB Prov:Pb Brasher MD 03/20/17 Risperidone (Risperdal) 1 Mg Tab, 3 MG PO Q12HR for health, #60 TAB Prov:Pb Brasher MD 03/20/17 Current Medications Medications (Trade) Dose Ordered Sig/Tom Route Start Time Stop Time Status Last Admin (Catapres) 0.1 mg Q4H PRN PO 07/07/17 16:15 Sodium Chloride 1,000 ml @ 100 mls/hr Q10H IV 07/07/17 16:00 07/08/17 04:56 (NS Flush) 2 ml BID IV FLUSH 07/07/17 21:00 07/08/17 09:07 (Tylenol) 650 mg Q4H PRN PO 07/07/17 16:00 (Zofran Inj) 4 mg Q6H PRN IVP 07/07/17 16:15 07/08/17 04:52 (Compazine Supp) 25 mg Q12H PRN RECTAL 07/07/17 16:15 (Tylenol) 650 mg Q6H PRN PO 07/07/17 16:00 (Percocet 5-325 Mg) 1 tab Q6H PRN PO 07/07/17 16:00 (Percocet 10-325 Mg) 1 tab Q6H PRN PO 07/07/17 16:00 07/08/17 06:02 (Morphine Inj) 2 mg Q3H PRN IV PUSH 07/07/17 16:00 (Morphine Inj) 4 mg Q3H PRN IV PUSH 07/07/17 16:00 (Narcan Inj) 0.4 mg UNSCH PRN IV PUSH 07/07/17 16:00 (Lida-Colace) 1 tab BID PO 07/07/17 21:00 07/08/17 09:07 (Milk Of Magnesia Liq) 30 ml Q12H PRN PO 07/07/17 16:00 (Senokot) 17.2 mg Q12H PRN PO 07/07/17 16:00 (Dulcolax Supp) 10 mg DAILY PRN RECTAL 07/07/17 16:00 (Lactulose Liq) 30 ml DAILY PRN PO 07/07/17 16:00 (Romazicon Inj) 0.2 mg Q1M PRN IV PUSH 07/07/17 16:15 (Ativan) 1 mg Q4H PRN PO 07/07/17 16:15 07/07/17 21:14 (Ativan Inj) 1 mg Q4H PRN IV PUSH 07/07/17 16:15 07/08/17 09:28 (Ativan) 2 mg Q2H PRN PO 07/07/17 16:15 (Ativan Inj) 2 mg Q2H PRN IV PUSH 07/07/17 16:15 (Ativan Inj) 2 mg Q1H PRN IV PUSH 07/07/17 16:15 (Ativan Inj) 2 mg Q15M PRN IV PUSH 07/07/17 16:15 (Haldol Inj) 2 mg Q15M PRN IM 07/07/17 16:15 (Diovan) 80 mg DAILY PO 07/08/17 09:00 07/08/17 09:07 (risperDAL) 6 mg HS PO 07/07/17 21:00 07/07/17 21:14 (Protonix Inj) 40 mg BID IV PUSH 07/07/17 21:00 07/08/17 09:07 (NS Flush) 2 ml UNSCH PRN IV FLUSH 07/07/17 16:15 (Folate) 1 mg DAILY PO 07/07/17 16:00 07/12/17 15:59 07/08/17 09:07 (Vitamin B1) 100 mg DAILY PO 07/07/17 16:00 07/08/17 09:07 (Theragran M Tab) 1 tab DAILY PO 07/07/17 16:15 07/12/17 16:14 07/08/17 09:07 (Duoneb Neb) 1 ampule Q4HR NEB PRN NEB 07/07/17 16:30 (Tessalon) 200 mg TID PRN PO 07/07/17 16:30 07/08/17 02:39 Family Psych History His father has diagnosed schizophrenia Social History Patient was born and raised in [place], he lives alone in [place], his single, unemployed, his highest level of education is high school Patient's Strengths (min. 2) Verbal communication, precontemplation state Physical Exam Vital Signs Vital Signs Date Time Temp Pulse Resp B/P (MAP) Pulse Ox O2 Delivery O2 Flow Rate FiO2 07/08/17 09:00 94 21 07/08/17 08:00 98.9 103 20 140/89 (106) 07/07/17 20:00 Room Air I/O 07/08/17 07/08/17 07/09/17 08:00 16:00 00:00 Intake Total 400 ml Output Total 350 ml Balance 50 ml Lab Results Test 07/07/17 17:50 07/08/17 00:22 07/08/17 05:35 07/08/17 11:39 Hemoglobin 14.4 GM/DL 12.9 GM/DL 13.0 GM/DL Hematocrit 39.6 % 37.5 % 37.5 % Total Creatine Kinase 3018 U/L 2683 U/L Creatine Kinase MB 27.2 NG/ML 16.4 NG/ML Creatine Kinase MB % 0.9 % 0.6 % Troponin I LESS THAN 0.02 NG/ML 0.02 NG/ML Blood Urea Nitrogen 10 MG/DL Creatinine 0.87 MG/DL Random Glucose 85 MG/DL Total Protein 5.6 GM/DL Albumin 2.5 GM/DL Calcium Level 7.2 MG/DL Phosphorus Level 1.1 MG/DL Magnesium Level 0.8 MG/DL Alkaline Phosphatase 84 U/L Aspartate Amino Transf (AST/SGOT) 183 U/L Alanine Aminotransferase (ALT/SGPT) 72 U/L Total Bilirubin 1.1 MG/DL Sodium Level 133 MEQ/L Potassium Level 2.9 MEQ/L 3.8 MEQ/L Chloride Level 97 MEQ/L Carbon Dioxide Level 25.3 MEQ/L Anion Gap 11 MEQ/L Estimat Glomerular Filtration Rate 105 ML/MIN Protein Corrected Calcium 8.0 MG/DL Free Thyroxine 0.94 NG/DL Thyroid Stimulating Hormone 3rd Gen 2.730 uIU/ML White Blood Count 3.9 TH/MM3 Red Blood Count 3.84 MIL/MM3 Mean Corpuscular Volume 97.5 FL Mean Corpuscular Hemoglobin 33.8 PG Mean Corpuscular Hemoglobin Concent 34.7 % Red Cell Distribution Width 13.3 % Platelet Count 72 TH/MM3 Mean Platelet Volume 8.9 FL Neutrophils (%) (Auto) 61.9 % Lymphocytes (%) (Auto) 14.4 % Monocytes (%) (Auto) 23.3 % Eosinophils (%) (Auto) 0.2 % Basophils (%) (Auto) 0.2 % Neutrophils # (Auto) 2.4 TH/MM3 Lymphocytes # (Auto) 0.6 TH/MM3 Monocytes # (Auto) 0.9 TH/MM3 Eosinophils # (Auto) 0.0 TH/MM3 Basophils # (Auto) 0.0 TH/MM3 CBC Comment AUTO DIFF Differential Comment AUTO DIFF CONFIRMED Platelet Estimate LOW Platelet Morphology Comment NORMAL Test 07/08/17 13:43 Mental Status Examination Appearance: Appropriate Consciousness: Alert Orientation: x4 Motor Activity: Normal gait Speech: Unremarkable Language: Adequate Fund of Knowledge: Adequate Attention and Concentration: Adequate Memory: Unremarkable Mood: Appropriate Affect: Appropriate Thought Process & Associations: Intact Thought Content: Appropriate Hallucination Type: None Delusion Type: None Suicidal Ideation: No Suicidal Plan: No Suicidal Intention: No Homicidal Ideation: No Homicidal Plan: No Homicidal Intention: No Insight: Adequate Judgment: Adequate Assessment & Plan Problem List: (1) Alcohol abuse with alcohol-induced mood disorder ICD Codes: F10.14 - Alcohol abuse with alcohol-induced mood disorder Assessment & Plan: On psychiatric evaluation today the patient does not present any concerning, significant or acute symptomatology of depression, anxiety, raquel or psychosis. Patient denies suicidal or homicidal ideation, patient denies visual and auditory hallucinations. He reports episodic paranoia that is most probably related with alcohol intoxication rather than secondary to a schizophrenia exacerbation. Patient is oriented 3, calm, cooperative and pleasant. Logical coherent and relevant. Patient seems to be motivated to follow medical recommendations, to quit alcohol and to be discharged to a rehabilitation program. Continue CIWA protocol. Brief supportive psychotherapy and motivational interviewing provided. Will split Risperdal to 3 mg twice a day. Patient does not meet criteria for involuntary psychiatric admission. Consult appreciated. Assessment & Plan Estimated LOS: Kailash Goodman MD Jul 08, 2017 14:44
[2017-07-08 16:08] LABS: HEMOGLOBIN A1a 1.3 %; HEMOGLOBIN A1b 0.9 %; HEMOGLOBIN F 0.9 %; HEMOGLOBIN LA1C 1.8 %; HEMOGLOBIN P3 3.5 %
--- NOTE | 2017-07-08 18:32 | RADRPT ---
EXAM DATE/TIME: 07/08/2017 16:52 [facility] COMPARISON: No previous studies available for comparison. INDICATIONS : Increased lab values. MEDICAL HISTORY : Hypertension. Asthma. Hematemesis. Schizophrenia. SURGICAL HISTORY : Right foot surgery. [place] teeth removed. ENCOUNTER: Initial ACUITY: 1 day PAIN SCORE: 2/10 LOCATION: Bilateral upper quadrant MEASUREMENTS: LIVER: 18.0 cm length COMMON DUCT: 3 mm RIGHT KIDNEY: 10.7 x 5.2 x 5.4 cm SPLEEN: 11.3 cm length FINDINGS: LIVER: The liver is echogenic without focal lesion or ductal dilatation. COMMON DUCT: No intraluminal mass or stone visualized. GALLBLADDER: Contains no stones, demonstrates no wall thickening or pericholecystic fluid. PANCREAS: The visualized portions are within normal limits. RIGHT KIDNEY: No hydronephrosis, stone or mass. SPLEEN: No focal lesion. CONCLUSION: Echogenic liver likely secondary to hepatic steatosis. Manny Tejeda MD on July 08, 2017 at 18:29 Board Certified Radiologist. This report was verified electronically.
[2017-07-08] MEDS: LORazepam 1 MG TAB PO PRN (22:22)
[2017-07-08] MEDS: risperiDONE 3 MG TAB PO SCH (22:23)
[2017-07-09] VITALS (7 sets, daily range): BP systolic 109–159; BP diastolic 59–93; PULSE 66–126; RESP 18–20; TEMP 98.1–99; O2SAT 95–99
[2017-07-09] MEDS: LORazepam 2 MG/ML VIAL IV PUSH PRN (08:45)
[2017-07-09] MEDS: SODIUM CHLORIDE 0.9% FLUSH 10 ML FLUSH IV FLUSH SCH (08:46)
[2017-07-09] MEDS: risperiDONE 3 MG TAB PO SCH (08:46)
[2017-07-09] MEDS: PANTOPRAZOLE SODIUM 40 MG VIAL IV PUSH SCH (08:46)
[2017-07-09] MEDS: VALSARTAN 80 MG TAB PO SCH (08:53)
[2017-07-09 09:03] LABS: AUTOMATED NEUTROPHIL # 2.3 TH/MM3 (1.8-7.7); EOSINOPHIL % 0.7 % (0.0-4.0); HEMATOCRIT 38.8 % (39.0-51.0); LYMPH % 14.8 % (9.0-44.0); LYMPHOCYTE # 0.5 TH/MM3 (1.0-4.8); MEAN CELL VOLUME 98.7 FL (80.0-100.0); MEAN CORPUSCULAR HEMOGLOBIN 34.2 PG (27.0-34.0); MEAN CORPUSCULAR HGB CONC 34.6 % (32.0-36.0); MONO % 20.7 % (0.0-8.0); NEUT % 62.8 % (16.0-70.0); PLATELET COUNT 71 TH/MM3 (150-450); RED BLOOD COUNT 3.93 MIL/MM3 (4.50-5.90); RED CELL DISTRIBUTION WIDTH 13.5 % (11.6-17.2); WHITE BLOOD COUNT 3.7 TH/MM3 (4.0-11.0)
[2017-07-09 09:12] LABS: HEMO FLAGS AUTO DIFF
[2017-07-09 09:30] LABS: ANION GAP 12 MEQ/L (5-15); AST (GOT) 190 U/L (15-37); BICARBONATE 21.7 MEQ/L (21.0-32.0); BLOOD UREA NITROGEN 5 MG/DL (7-18); CHLORIDE 104 MEQ/L (98-107); GLOMERULAR FILTRATION RATE 209 ML/MIN (>89); SODIUM (NA) 138 MEQ/L (136-145)
[2017-07-09 10:13] LABS: BANDS 16 % (0-6); EOSINOPHILS 1 % (0-4); NEUTROPHIL # MANUAL DIFF 2.8 TH/MM3 (1.8-7.7); PLATELET ESTIMATE SMEAR LOW (NORMAL); PLATELET MORPHOLOGY NORMAL (NORMAL); POLYS (SEG NEUTROPHILS) 59 % (16-70); SCAN/DIFF FINAL DIFF MANUAL; WBC DIFF SAMPLE 100
[2017-07-09 10:16] LABS: ALKALINE PHOSPHATASE 91 U/L (45-117); ALT (GPT) 75 U/L (12-78); CREATINE KINASE 2944 U/L (39-308); TOTAL BILIRUBIN ADULT 1.3 MG/DL (0.2-1.0)
--- NOTE | 2017-07-09 10:33 | HHI.PR ---
Subjective Remarks Wean lorazepam. Start Librium every 8 hours and taper as tolerated. Delirium tremens is improving. Rhabdomyolysis remains. Objective Vital Signs Date Time Temp Pulse Resp B/P (MAP) Pulse Ox O2 Delivery O2 Flow Rate FiO2 07/09/17 08:03 81 07/09/17 08:00 98.6 97 20 159/93 (115) 97 07/09/17 04:00 98.7 100 18 149/87 (107) 95 07/09/17 00:00 99.0 90 18 130/79 (96) 95 07/08/17 23:22 18 07/08/17 20:00 100 07/08/17 20:00 99.2 98 18 144/89 (107) 96 07/08/17 16:00 99.0 98 20 143/89 (107) 94 07/08/17 12:00 98.6 97 20 134/70 (91) 94 I/O 07/08/17 07/08/17 07/08/17 07/09/17 07/09/17 07/09/17 07:00 15:00 23:00 07:00 15:00 23:00 Intake Total 400 ml 0 ml 240 ml Output Total 350 ml 3050 ml 500 ml Balance 50 ml -3050 ml -260 ml Intake Oral 400 ml 0 ml 240 ml Output Urine Total 350 ml 3050 ml 500 ml # Voids 4 # Bowel Movements 1 2 0 Result Diagram: 07/09/17 0710 07/09/17 0710 Objective Remarks GENERAL: NAD, A&Ox3 HEAD: Normocephalic. NECK: Supple, trachea midline. No lymphadenopathy. EYES: No scleral icterus. No injection or drainage. CARDIOVASCULAR: Regular rate and rhythm without murmurs, gallops, or rubs. RESPIRATORY: Breath sounds equal bilaterally. No accessory muscle use. GASTROINTESTINAL: Abdomen soft, non-tender, nondistended. MUSCULOSKELETAL: No cyanosis, or edema. SKIN: Warm and dry. NEURO: No focal neurological deficitis. No tremors. A/P Problem List: (1) Elevated LFTs ICD Code: R79.89 - Other specified abnormal findings of blood chemistry Status: Acute (2) Alcohol withdrawal ICD Code: F10.239 - Alcohol dependence with withdrawal, unspecified Status: Acute (3) Tobacco abuse ICD Code: Z72.0 - Tobacco use Status: Chronic (4) Psychosis ICD Code: F29 - Unspecified psychosis not due to a substance or known physiological condition Status: Acute (5) Renal insufficiency ICD Code: N28.9 - Disorder of kidney and ureter, unspecified Status: Acute (6) Paranoid schizophrenia ICD Code: F20.0 - Paranoid schizophrenia Status: Acute (7) Rhabdomyolysis ICD Code: M62.82 - Rhabdomyolysis Status: Acute (8) JAE (acute kidney injury) ICD Code: N17.9 - Acute kidney failure, unspecified Status: Acute Assessment and Plan Assessment and Plan 26-year-old male admitted secondary to GI bleed and delirium tremens. Stop telemetry. Stop IV hydration. Follow creatinine kinase. Delirium tremens Continue CIWA protocol. Continue Ativan and Librium Continue folic acid Continue thiamine Wean sedatives as tolerated Recent GI bleed No anemia Follow hemoglobin GI consulted Continue Protonix Nicotine dependence Continue NicoDerm History of schizophrenia Psychiatry has been consulted Mental condition may have been contributory to his alcohol abuse and or GI bleeding Hypokalemia Monitor levels and replace as needed Hypertension Continue baseline treatments Follow blood pressure DVT prophylaxis SCDs Lanre Murphy MD Jul 09, 2017 10:33
[2017-07-09 10:35] LABS: CKMB 10.8 NG/ML (0.5-3.6)
--- NOTE | 2017-07-09 10:41 | HHI.PYPN ---
Subjective Remarks Patient seen today for psychiatric reevaluation, patient home, cooperative and pleasant, reports good mood, reports that he is motivated to go to a rehabilitation program for alcohol. Insight and homicidal ideation, denies visual and auditory hallucinations. Denies withdrawal symptoms at the moment. Oriented 3, no attention deficit. Taking his medications, no side effects. Mental Status Examination Appearance: Appropriate Consciousness: Alert Orientation: x4 Motor Activity: Normal gait Speech: Unremarkable Language: Adequate Fund of Knowledge: Adequate Attention and Concentration: Adequate Memory: Unremarkable Mood: Appropriate Affect: Appropriate Thought Process & Associations: Intact Thought Content: Appropriate Hallucination Type: None Delusion Type: None Suicidal Ideation: No Suicidal Plan: No Suicidal Intention: No Homicidal Ideation: No Homicidal Plan: No Homicidal Intention: No Insight: Adequate Judgment: Adequate Results Labs Test 07/08/17 11:39 07/08/17 13:43 07/08/17 21:20 07/09/17 07:10 Potassium Level 3.8 MEQ/L 3.0 MEQ/L Prothrombin Time 11.1 SEC Prothromb Time International Ratio 1.0 RATIO Urine Opiates Screen NEG Urine Barbiturates Screen NEG Urine Amphetamines Screen NEG Urine Benzodiazepines Screen NEG Urine Cocaine Screen NEG Urine Cannabinoids Screen NEG White Blood Count 3.7 TH/MM3 Red Blood Count 3.93 MIL/MM3 Hemoglobin 13.4 GM/DL Hematocrit 38.8 % Mean Corpuscular Volume 98.7 FL Mean Corpuscular Hemoglobin 34.2 PG Mean Corpuscular Hemoglobin Concent 34.6 % Red Cell Distribution Width 13.5 % Platelet Count 71 TH/MM3 Mean Platelet Volume 8.4 FL Neutrophils (%) (Auto) 62.8 % Lymphocytes (%) (Auto) 14.8 % Monocytes (%) (Auto) 20.7 % Eosinophils (%) (Auto) 0.7 % Basophils (%) (Auto) 1.0 % Neutrophils # (Auto) 2.3 TH/MM3 Lymphocytes # (Auto) 0.5 TH/MM3 Monocytes # (Auto) 0.8 TH/MM3 Eosinophils # (Auto) 0.0 TH/MM3 Basophils # (Auto) 0.0 TH/MM3 CBC Comment AUTO DIFF Differential Total Cells Counted 100 Neutrophils % (Manual) 59 % Band Neutrophils % 16 % Lymphocytes % 13 % Monocytes % 11 % Eosinophils % 1 % Neutrophils # (Manual) 2.8 TH/MM3 Differential Comment FINAL DIFF MANUAL Platelet Estimate LOW Platelet Morphology Comment NORMAL Blood Urea Nitrogen 5 MG/DL Creatinine 0.48 MG/DL Random Glucose 71 MG/DL Total Protein 6.0 GM/DL Albumin 2.6 GM/DL Calcium Level 7.8 MG/DL Alkaline Phosphatase 91 U/L Aspartate Amino Transf (AST/SGOT) 190 U/L Alanine Aminotransferase (ALT/SGPT) 75 U/L Total Bilirubin 1.3 MG/DL Sodium Level 138 MEQ/L Chloride Level 104 MEQ/L Carbon Dioxide Level 21.7 MEQ/L Anion Gap 12 MEQ/L Estimat Glomerular Filtration Rate 209 ML/MIN Total Creatine Kinase 2944 U/L Creatine Kinase MB 10.8 NG/ML Creatine Kinase MB % 0.4 % Vitals/IOs Vital Signs Date Time Temp Pulse Resp B/P (MAP) Pulse Ox O2 Delivery O2 Flow Rate FiO2 07/09/17 08:03 81 07/09/17 08:00 98.6 20 159/93 (115) 97 07/08/17 09:00 21 07/08/17 09:00 Room Air Intake and Output 07/09/17 07/09/17 07/10/17 08:00 16:00 00:00 Intake Total 240 ml Output Total 500 ml Balance -260 ml Assessment & Plan Problem List: (1) Alcohol abuse with alcohol-induced mood disorder ICD Codes: F10.14 - Alcohol abuse with alcohol-induced mood disorder Assessment & Plan Estimated LOS: days Justification for Cont. Inpt. No psychiatric admission recommended. Psychiatry is signing off. Kailash Flowers MD Jul 09, 2017 10:41
[2017-07-09] MEDS ORDERED: POTASSIUM CHLORIDE 20 MEQ PWD PACKET PO ONE (11:00)
--- NOTE | 2017-07-09 12:28 | PD.PROCEDR ---
GI Procedure REFERRING PHYSICIAN Ajit PROCEDURE PERFORMED EGD with biopsy INDICATION FOR PROCEDURE Hematemesis PROCEDURE: The procedure, risks and benefits were discussed with Mr. Moya and informed consent was obtained. Anesthesia sedated him with Diprivan. He was placed in the left lateral decubitus position. EGD: The Pentax videoscope was introduced through the oropharynx and advanced to the second portion of the duodenum under direct visualization. Retroflexion was performed in the stomach. FINDINGS: Esophagus the distal esophageal mucosa was erythemic and friable suggestive of reflux esophagitis with a small ulceration noted at the very distal end of the esophagus was biopsied for further evaluation Stomach there was a small hiatal hernia the gastric mucosa appeared to be also erythemic throughout with some edema and this was biopsied no ulcerations or erosions no blood or bleeding Duodenum this was normal ESTIMATED BLOOD LOSS: None SPECIMENS REMOVED: Esophageal and gastric biopsies COMPLICATIONS: None IMPRESSION: Severe reflux esophagitis with esophageal ulcer Hiatal hernia Melgoza gastritis PLAN: Await biopsies Avoid NSAIDs and aspirin and alcohol Recommend Protonix 40 mg twice a day Advanced diet as tolerated Okay for discharge from a GI standpoint Follow-up with GI post discharge We will sign off Jero Brandon MD Jul 09, 2017 12:28
[2017-07-09] MEDS ORDERED: DO NOT ADM ANY ANTICOAGULANT DRUGS PRN (12:35)
[2017-07-09] MEDS: DOCUSATE SODIUM 50 MG/SENNA 8.6 MG TAB PO SCH (16:10)
[2017-07-09] MEDS: FOLIC ACID 1 MG TAB PO SCH (16:10)
[2017-07-09] MEDS: MULTIVITAMINS/MINERALS THERAPEUTIC TAB PO SCH (16:10)
[2017-07-09] MEDS: THIAMINE HCL 100 MG TAB PO SCH (16:10)
== END 2017-07-09 18:59 | disposition left against medical advice (07) | DRG 378 ==
LOC: NEDDLT 15:20 → N04B 15:38
PROVIDERS: ADMIT Hospitalist; ATTEND Hospitalist
PROC: 0DB68ZX Excision of Stomach, Via Natural or Artificial Opening Endoscopic, Diagnostic (ICD-10-PCS; 2017-07-09)
PROC: 0DB38ZX Excision of Lower Esophagus, Via Natural or Artificial Opening Endoscopic, Diagnostic (ICD-10-PCS; principal; 2017-07-09 11:53)
DX: K92.0 Hematemesis (principal); K22.10 Ulcer of esophagus without bleeding; F10.231 Alcohol dependence with withdrawal delirium; N17.9 Acute kidney failure, unspecified; M62.82 Rhabdomyolysis; F20.0 Paranoid schizophrenia; R45.850 Homicidal ideations; F10.24 Alcohol dependence with alcohol-induced mood disorder; K70.10 Alcoholic hepatitis without ascites; K21.0 Gastro-esophageal reflux disease with esophagitis; K44.9 Diaphragmatic hernia without obstruction or gangrene; K29.70 Gastritis, unspecified, without bleeding; I10 Essential (primary) hypertension; J45.909 Unspecified asthma, uncomplicated; E87.6 Hypokalemia; F17.200 Nicotine dependence, unspecified, uncomplicated; F32.9 Major depressive disorder, single episode, unspecified
CPT/HCPCS: 71010; 76705; 80053; 80074; 80307; 82272; 82550; 82552; 82948; 83036; 83735; 84100; 84132; 84439; 84443; 84484; 85007; 85014; 85018; 85025; 85027; 85610; 85730; 88305; 88312; 90686; 93005; 94150; C9113; J2060; J2405; J3475; J7030; Q2038